=== PATIENT | female | born 1975 | race Caucasian/White ===

== ENCOUNTER 2018-03-12 14:40 | Inpatient (IN) ==
[2018-03-13] MEDS ORDERED: Morphine Inj 4 MG/ML Vial IV.PUSH PRN ×2 (00:03→14:00)
--- NOTE | 2018-03-13 06:36 | XR ---
EXAM DATE: 03/13/2018 5:53 AM EDT AGE/SEX: 42 years / Female INDICATIONS: Evaluate pneumothorax, chest tube came out yesterday. CLINICAL DATA: This is the patient's subsequent encounter. Patient reports that signs and symptoms h ave been present for 1 day and indicates a pain score of 3/10. MEDICAL/SURGICAL HISTORY: None. Chest tube, right. COMPARISON: [facility], CHEST 1V SINGLE AP, 03/12/2018. . FINDINGS: A single AP erect view the chest was obtained and demonstrates marked interval increase in the right pneumothorax with central collapse of the right lung. There is mild mediastinal shift to the left ind icating mild tension. There is hazy opacity in the right lung base. There is no effusion. The left romie ng is clear. The heart size is within normal limits. The bony thorax is intact. CONCLUSION: Significant interval increase in size of the right pneumothorax with evidence of tension. These findings were called to the patient's nurse Zelda at 0631 hours. Electronically signed by: See Ray MD 03/13/2018 6:35 AM EDT
[2018-03-13] MEDS ORDERED: Lidocaine 1% Inj 30 ML Vial ONE (07:30)
[2018-03-13] MEDS ORDERED: Morphine Sulfate Inj 8 MG/ML Vial ONE (07:53)
--- NOTE | 2018-03-13 08:51 | XR ---
EXAM DATE: 03/13/2018 8:40 AM EDT AGE/SEX: 42 years / Female INDICATIONS: Post chest tube placement in right side CLINICAL DATA: This is the patient's subsequent encounter. Patient reports that signs and symptoms h ave been present for 1 day and indicates a pain score of 8/10. MEDICAL/SURGICAL HISTORY: . pneumothorax Chest tube, right. COMPARISON: [facility], CHEST 1V SINGLE AP, 03/13/2018. . FINDINGS: Interval placement of right-sided chest tube with resolution of right-sided pneumothorax. Minimal ple ural parenchymal opacities at the right lung base. Tracer right-sided subcutaneous emphysema. Remaind er of exam is unchanged. CONCLUSION: 1. Interval placement right-sided chest tube with resolution of right-sided pneumothorax. Electronically signed by: Elkin Ross MD 03/13/2018 8:50 AM EDT
[2018-03-13] MEDS ORDERED: Morphine Inj 4 MG/ML Vial IV.PUSH ONE (09:00)
[2018-03-13] MEDS ORDERED: Bisacodyl 10 MG Supp RECTAL PRN (11:36)
--- NOTE | 2018-03-13 14:45 | P.PN ---
Subjective Interval history: Trauma PTD: 3 HD: 1 Pt lying in bed. Painful. just completed emergent RIGHT CT placement. Physical Exam Vital signs: Vital Signs 03/12/18 22:50 03/13/18 03:46 03/13/18 06:41 Temperature 98.1 F 97.5 F L 97.9 F Pulse Rate 53 L 82 74 Respiratory Rate 17 17 16 Blood Pressure 117/58 L 135/67 117/57 L Pulse Oximetry 97 94 L 96 03/13/18 07:30 03/13/18 08:00 03/13/18 12:00 Temperature 97.9 F 97.5 F L Pulse Rate 72 72 Respiratory Rate 20 19 19 Blood Pressure 111/65 111/65 106/75 Pulse Oximetry 99 99 98 Intake & Output 03/12/18 03/13/18 03/13/18 18:59 06:59 18:59 Intake Total 480 / 480 Balance 480 / 480 Weight 72.1 kg Intake: Oral 480 / 480 Other: # Voids 3 Weight On Admission 72.1 kg Narrative: GENERAL: This is a 42 year old female lying in bed. No distress noted. SKIN: Warm and dry. HEAD: Atraumatic. Normocephalic. EYES: PERRLA ENT: No nasal bleeding or discharge. Mucous membranes pink and moist. NECK: Trachea midline. No JVD. CARDIOVASCULAR: Regular rate and rhythm. RESPIRATORY: No accessory muscle use. Lungs are clear to auscultation. Breath sounds equal bilaterally. No distress or dyspnea. Right lateral chest tube in place to Pleur-evac drainage system to 20 cm suction. Elastoplast dressing applied. Elastoplast Dressing applied. CDI. GASTROINTESTINAL: BS + x 4 quads. Abdomen soft, non-tender, nondistended. MUSCULOSKELETAL: Extremities without cyanosis, or edema. + peripheral pulses x 4 extremities. Warm with good capillary refill and sensation. MAEW. NEUROLOGICAL: Awake and alert. Normal speech and pattern. Results - Labs CBC & Chem 7: 03/14/18 04:20 03/14/18 04:20 - Imaging Impressions Chest X-Ray 03/13/18 07:00 CONCLUSION: Significant interval increase in size of the right pneumothorax with evidence of tension. These findings were called to the patient's nurse Zelda at 0631 hours. Chest X-Ray 03/13/18 08:07 CONCLUSION: 1. Interval placement right-sided chest tube with resolution of right-sided pneumothorax. Assessment and Plan - Plan ELEM: This is a 42 year old female who developed a PTX after her young grandson jumped on her stomach. INJURIES: RIGHT PTX PMHx: smoker Procedures: 03/12: R CT in [place] 03/13: R CT "fell out" 03/13: R CT placed for PTX w tension Consults: Case management Diet: Regular diet. Tolerating po diet. Encourage good po intake with each meal. Pulmonary: Encourage good pulmonary toileting. IS at bedside and pt encouraged to use. Rationale for use explained to patient, and verbalized understanding. A.m. chest x-ray shows right PTX with tension. Right lateral chest tube emergently inserted at bedside and placed to Pleur- evac drainage system to 20 cm suction. Dressing CDI. Immediate follow-up chest x-ray shows resolution of right PTX. Follow-up chest x-ray in the morning PAIN Management: Percocet 5-10 mg q 4h. Morphine 2 mg q 3h for breakthrough pain . Flexeril 5 mg q8h. Toradol 15 mg q 6h. Activity: OOB. Pt ordered. GI prophylaxis: Protonix 40 mg IV Bowel regimen: Sushila-clace. MOM. Lactulose PRN. Senna PRN. Bisacodyl PRN. LBM: 0 DVT prophylaxis: Mechanical VTE with SCDs. Chemical management TBD. DC Planning: Case management consulted for assistance with final discharge disposition. Plan for discharge in 2-3 days once pain is managed, and chest tube can be removed. Emotional support provided to patient and family at bedside and plan of care discussed. Discussed with RN at bedside. Discussed pt condition and plan of care with collaborating trauma surgeon. Patient is hemodynamically stable and being managed on the med/surg floor. The trauma team will round each day, and evaluate plan of care on a daily basis. Right PTX O2 nasal cannula as needed Supportive care 03/12: R CT in [place] 03/13: R CT "fell out" 03/13: R CT placed for PTX with tension Aggressive pulmonary toileting A.m. chest x-ray shows right PTX tension Emergent right chest tube placed at bedside by . Right lateral chest tube placed up to Pleur-evac drainage system at 20 cm suction Immediate follow-up chest x-ray shows resolution of right PTX Chest x-ray daily while chest tube in place Pain management PT ordered Encourage out of bed Bowel regimen - Attending Attestation The exam, history, and the medical decision-making described in the above note were completed with the assistance of the mid-level provider. I reviewed and agree with the findings presented. I attest that I had a [id number] encounter with the patient on the same day, and personally performed and documented my assessment and findings in the medical record.
[2018-03-13] MEDS: Ketorolac Inj 30 MG/ML (IVP) Vial IV.PUSH SCH ×2 (15:29→21:56)
[2018-03-13] MEDS: Senna/Docusate Sodium 8.6/50 MG Tablet PO SCH (21:55)
[2018-03-14] MEDS: Ketorolac Inj 30 MG/ML (IVP) Vial IV.PUSH SCH ×4 (02:43→21:23)
[2018-03-14 05:16] LABS: Baso % (Auto) 0.8 % (0.0-2.0); Eos # (Auto) 0.2 th/mm3 (0.0-0.4); Eos % (Auto) 3.1 % (0.0-4.0); Hematocrit 31.4 % (35.0-46.0); Hemoglobin 10.2 gm/dL (11.6-15.3); Lymph # (Auto) 1.4 th/mm3 (1.0-4.8); Lymph % (Auto) 24.2 % (9.0-44.0); Mean Corpuscular HGB Conc 32.5 % (32.0-36.0); Mean Corpuscular Hemoglobin 27.7 pg (27.0-34.0); Mean Corpuscular Volume 85.2 fL (80.0-100.0); Mean Platelet Volume 9.5 fL (7.0-11.0); Mono # (Auto) 0.4 th/mm3 (0.0-0.9); Mono % (Auto) 6.7 % (0.0-8.0); Neut # (Auto) 3.8 th/mm3 (1.8-7.7); Neut % (Auto) 65.2 % (16.0-70.0); Platelet Count 237 th/mm3 (150-450); Red Blood Count 3.68 mil/mm3 (4.00-5.30); Red Cell Distribution Width 14.6 % (11.6-17.2); White Blood Count 5.8 th/mm3 (4.0-11.0)
[2018-03-14 05:35] LABS: Calcium 7.9 mg/dL (8.5-10.1); Carbon Dioxide 27.2 meq/L (21.0-32.0); Potassium 3.9 meq/L (3.5-5.1)
--- NOTE | 2018-03-14 07:47 | XR ---
EXAM DATE: 03/14/2018 7:39 AM EDT AGE/SEX: 42 years / Female INDICATIONS: Short of breath. CLINICAL DATA: This is the patient's subsequent encounter. Patient reports that signs and symptoms h ave been present for 2 days and indicates a pain score of Nonresponsive. MEDICAL/SURGICAL HISTORY: None. . Chest tube, right. COMPARISON: [facility] [place] 1[place], 03/13/2018. . FINDINGS: There is a stable right-sided chest tube in place. No significant pneumothorax. Slight progression of mild patchy airspace disease in the lower lobes bilaterally. Improved subcutaneous emphysema in the right chest wall. Cardiomediastinal contours are stable. Remainder of the exam is unchanged. CONCLUSION: 1. Stable right-sided chest tube in place without pneumothorax. 2. Slight progression of patchy bilateral lower lobe airspace disease, likely atelectasis. Electronically signed by: Elkin Ross MD 03/14/2018 7:45 AM EDT
[2018-03-14] MEDS: Senna/Docusate Sodium 8.6/50 MG Tablet PO SCH ×2 (10:22→21:23)
--- NOTE | 2018-03-14 12:49 | P.PN ---
Subjective Interval history: TRAUMA PTD: 3. HD: 2 Patient sitting up in bed. No distress noted. Patient states her pain, "comes and goes." Physical Exam Vital signs: Vital Signs 03/13/18 16:00 03/13/18 20:00 03/14/18 00:00 Temperature 97.5 F L 98.4 F 98 F Pulse Rate 60 70 70 Respiratory Rate 18 20 20 Blood Pressure 104/53 L 103/58 L 102/65 Pulse Oximetry 100 100 94 L 03/14/18 04:00 03/14/18 08:00 03/14/18 08:18 Temperature 97.2 F L 97.7 F Pulse Rate 74 75 Respiratory Rate 18 14 Blood Pressure 102/58 L 104/55 L Pulse Oximetry 100 99 100 03/14/18 12:00 Temperature 98.2 F Pulse Rate 76 Respiratory Rate 14 Blood Pressure 104/70 Pulse Oximetry 93 L Intake & Output 03/13/18 03/14/18 03/14/18 18:59 06:59 18:59 Intake Total 950 / 950 Output Total 50 / 50 Balance 950 / 950 -50 / -50 Intake: Oral 950 / 950 Output: Chest Tube Drainage 50 / 50 Right 50 / 50 Other: # Voids 3 Narrative: GENERAL: This is a 42 year old female lying in bed. No distress noted. SKIN: Warm and dry. HEAD: Atraumatic. Normocephalic. EYES: PERRLA ENT: No nasal bleeding or discharge. Mucous membranes pink and moist. NECK: Trachea midline. No JVD. CARDIOVASCULAR: Regular rate and rhythm. RESPIRATORY: No accessory muscle use. Lungs are clear to auscultation. Breath sounds equal bilaterally. No distress or dyspnea. Right lateral chest tube in place to Pleur-evac drainage system to 20 cm suction -decreased to waterseal upon rounds. Elastoplast Dressing applied. CDI. GASTROINTESTINAL: BS + x 4 quads. Abdomen soft, non-tender, nondistended. MUSCULOSKELETAL: Extremities without cyanosis, or edema. + peripheral pulses x 4 extremities. Warm with good capillary refill and sensation. MAEW. NEUROLOGICAL: Awake and alert. Normal speech and pattern. Results - Labs CBC & Chem 7: 03/14/18 04:20 03/14/18 04:20 Laboratory Results - last 24 hr 03/14/18 03/14/18 04:20 04:20 WBC 5.8 RBC 3.68 L Hgb 10.2 L Hct 31.4 L MCV 85.2 MCH 27.7 MCHC 32.5 RDW 14.6 Plt Count 237 MPV 9.5 Neut % (Auto) 65.2 Lymph % (Auto) 24.2 Iron % (Auto) 6.7 Eos % (Auto) 3.1 Baso % (Auto) 0.8 Neut # (Auto) 3.8 Lymph # (Auto) 1.4 Iron # (Auto) 0.4 Eos # (Auto) 0.2 Baso # (Auto) 0.0 WBC Differential . Differential Comment Auto diff final Sodium 141 Potassium 3.9 Chloride 110 H Carbon Dioxide 27.2 Anion Gap 4 L BUN 11 Creatinine 0.81 Estimated GFR 77 L Random Glucose 91 Calcium 7.9 L D - Imaging Impressions Chest X-Ray 03/14/18 06:00 CONCLUSION: 1. Stable right-sided chest tube in place without pneumothorax. 2. Slight progression of patchy bilateral lower lobe airspace disease, likely atelectasis. Assessment and Plan - Plan SUN'AQ: This is a 42 year old female who developed a pneumothorax after her young grandson jumped on her stomach. She originally went to [facility], and received a chest tube. She was transferred to [place] for trauma services. INJURIES: RIGHT PTX PMHx: smoker Procedures: 03/12: R CT in [place] 03/13: R CT "fell out" 03/13: R CT placed for PTX w tension Consults: Case management Diet: Regular diet. Tolerating po diet. Encourage good po intake with each meal. Pulmonary: Encourage good pulmonary toileting. IS at bedside and pt encouraged to use. Rationale for use explained to patient, and verbalized understanding. Right lateral chest tube in place to Pleur-evac drainage system at 20 cm suction. Dressing CDI. Chest tube output = 50 ml/25hr. Chest x-ray shows no PTX. Minimal atelectasis. Will decrease chest tube to waterseal. Follow-up chest x-ray in the morning. PAIN Management: Percocet 5-10 mg q 4h. Morphine 2 mg q 3h for breakthrough pain . Flexeril 5 mg q8h. Toradol 15 mg q 6h. Activity: OOB. Pt ordered. GI prophylaxis: Protonix 40 mg IV Bowel regimen: Sushila-clace. MOM. Lactulose PRN. Senna PRN. Bisacodyl PRN. LBM: 0 DVT prophylaxis: Mechanical VTE with SCDs. Chemical management TBD. DC Planning: Case management consulted for assistance with final discharge disposition. Plan for discharge in 1-2 days once pneumothorax resolved, and chest tube can be removed. Emotional support provided to patient at bedside and plan of care discussed. Discussed with RN at bedside. Discussed pt condition and plan of care with collaborating trauma surgeon. Patient is hemodynamically stable and being managed on the med/surg floor. The trauma team will round each day, and evaluate plan of care on a daily basis. RIGHT PTX O2 nasal cannula as needed Supportive care Aggressive pulmonary toileting Chest x-ray daily while chest tube is in place 03/12: R CT in [place] 03/13: R CT "fell out" 03/13: R CT placed for PTX with tension Right lateral chest tube in place to Pleur-evac drainage system to 20 cm suction. Chest tube output - 50 ml/24hrs Chest x-ray this a.m. shows no PTX, slight atelectasis Chest decreased to waterseal upon rounds Pain management PT ordered Encourage out of bed Bowel regimen Lovenox for DVT prophylaxis Addendum seen and examined-no PTX on CXR,no airleak,CT to waterseal,continue pain control
[2018-03-14] MEDS: Enoxaparin Inj 30 MG/0.3 ML Syringe SQ SCH (21:23)
[2018-03-15] MEDS: Ketorolac Inj 30 MG/ML (IVP) Vial IV.PUSH SCH ×3 (01:56→13:52)
--- NOTE | 2018-03-15 06:57 | XR ---
EXAM DATE: 03/15/2018 6:53 AM EDT AGE/SEX: 42 years / Female INDICATIONS: Short of breath, evaluate right side chest tube CLINICAL DATA: This is the patient's subsequent encounter. Patient reports that signs and symptoms h ave been present for 4 - 6 days and indicates a pain score of 3/10. MEDICAL/SURGICAL HISTORY: . pneumothorax Chest tube, right. COMPARISON: [facility], CHEST 1V SINGLE AP, 03/14/2018. . FINDINGS: A single AP portable erect expiratory view of the chest was obtained. The right-sided chest tube karla ins in place with no pneumothorax. There is mild streaky opacity in the perihilar regions and lung ba ses without significant change. There is mild blunting the right costophrenic angle. The bony thorax remains intact. CONCLUSION: 1. Stable appearance with right-sided chest tube and no pneumothorax. 2. Mild hazy opacity remains in the perihilar regions and lung bases and there is mild blunting the right costophrenic angle. Electronically signed by: See Ray MD 03/15/2018 6:56 AM EDT
[2018-03-15] MEDS: Enoxaparin Inj 30 MG/0.3 ML Syringe SQ SCH (09:42)
[2018-03-15] MEDS: Senna/Docusate Sodium 8.6/50 MG Tablet PO SCH (12:32)
[2018-03-15 12:39] VITALS: RESP 16
[2018-03-15 12:41] VITALS: TEMP 98.6
--- NOTE | 2018-03-15 15:03 | XR ---
EXAM DATE: 03/15/2018 3:00 PM EDT AGE/SEX: 42 years / Female INDICATIONS: Post chest tube removal. CLINICAL DATA: This is the patient's subsequent encounter. Patient reports that signs and symptoms h ave been present for 2 days and indicates a pain score of 0/10. MEDICAL/SURGICAL HISTORY: . Pneumothorax. . Chest tube, right. COMPARISON: [facility] [place], CHEST 1V SINGLE AP, 03/15/2018. . FINDINGS: A single AP view of the chest demonstrates the lungs to be symmetrically aerated without evidence of mass, infiltrate or effusion. The right-sided chest tube has been removed. There is no evidence of pn eumothorax. The cardiomediastinal contours are unremarkable. Osseous structures are intact. CONCLUSION: No evidence of pneumothorax. Electronically signed by: Arnie Hinson MD 03/15/2018 3:02 PM EDT
--- NOTE | 2018-03-15 16:11 | P.DS ---
Date of admission: 03/12/18 22:55 Primary care physician: No Primary Care Physician Anticipated date of discharge: 03/15/18 Brief History from admission: Spontaneous PTX DS: Diagnosis - Discharge Diagnosis (1) Patient denies medical problems Status: Acute DS: Medications - Discharge Medications Prescriptions: cyclobenzaprine 5 mg PO Q8HR 7 Days #11 tab oxycodone-acetaminophen 1 tab PO Q4H PRN 3 Days #18 tab PRN Reason: Pain DS: Summary Hospital Course: MAKAH: This is a 42 year old female who developed a pneumothorax after her young grandson jumped on her stomach. She originally went to [facility], and received a chest tube. She was transferred to [place] for trauma services. INJURIES: RIGHT PTX PMHx: smoker Procedures: 03/12: R CT in [place] 03/13: R CT "fell out" 03/13: R CT placed for PTX w tension Consults: Case management Right lateral chest tube in place to Pleur-evac drainage system to waterseal. A.m. chest x-ray shows no PTX. Chest tube removed without incident at bedside. Xeroform and 4 x 4 dressing applied and secured with Elastoplast tape. Patient tolerated procedure well. Follow-up chest x-ray post chest tube removal shows no PTX. The patient is now tolerating a po diet. Eating and drinking well. Pain is being managed well with PO pain medications, and patient is being a provided with a script for pain meds upon discharge. [This patient will be prescribed narcotic pain medications due to his traumatic injuries. The patient has a normal physiological response to severe traumatic injuries and surgery. He will need acute pain management with prescribed narcotic treatment. The [employer] prescription drug monitoring program database has been queried.] (NO driving while taking narcotic pain medication enforced to patient.) Pt is having regular bowel movements, and have recommended to patient to continue with stool softeners while taking narcotic pain medications to prevent constipation. Pt has been participating in PT and OT while admitted at [place] and has been ambulating with their assistance and independently. All follow up appointments have been provided and discussed with the patient. It is recommended that the patient keeps all his follow up appointments for continued recovery. Patient's condition and plan of care discussed with collaborating trauma surgeon. He is agreeable to plan for discharge today. Therefore, the patient is stable to be safely discharged home from a trauma surgery standpoint. Thank you for allowing us to participate in her care. We wish Peggy the best in her recovery. RIGHT PTX O2 nasal cannula as needed Supportive care Aggressive pulmonary toileting Chest x-ray daily while chest tube is in place 03/12: R CT in [place] 03/13: R CT "fell out" 03/13: R CT placed for PTX with tension Right lateral chest tube in place to Pleur-evac drainage system to waterseal Chest tube output - 110 ml/24hrs Chest x-ray this a.m. shows no PTX, slight atelectasis 03/15: Right lateral chest tube removed without incident Follow-up chest x-ray post chest tube removal shows no PTX Pain management PT ordered Encourage out of bed Bowel regimen Lovenox for DVT prophylaxis - Time Spent with Patient Total time spent providing and/or coordinating discharge services: Less than 30 minutes - Quality: VTE Deep Vein Thrombosis/Pulmonary Embolism Present on Admission: No Exam Vital signs: Vital Signs 03/14/18 16:00 03/14/18 20:00 03/14/18 20:16 Temperature 97.6 F 97.7 F Pulse Rate 80 79 Respiratory Rate 18 18 Blood Pressure 107/58 L 114/58 L Pulse Oximetry 100 98 100 03/14/18 22:29 03/15/18 00:00 03/15/18 04:00 Temperature 98.0 F 97.9 F Pulse Rate 82 79 Respiratory Rate 20 19 18 Blood Pressure 107/59 L 109/68 Pulse Oximetry 96 95 03/15/18 08:00 03/15/18 12:00 Temperature 98.2 F 98.6 F Pulse Rate 83 91 H Respiratory Rate 16 Blood Pressure 128/80 107/68 Pulse Oximetry 98 97 Intake & Output 03/14/18 03/15/18 03/15/18 18:59 06:59 18:59 Intake Total 1400 / 1400 900 / 900 Output Total 85 / 85 32 / 32 Balance 1315 / 1315 868 / 868 Weight 72.1 kg Intake: Oral 1400 / 1400 900 / 900 Output: Chest Tube Drainage Right Other: # Voids 5 4 Date of Last Bowel Movement 03/14/18 Narrative: GENERAL: This is a 42 year old female lying in bed. No distress noted. SKIN: Warm and dry. HEAD: Atraumatic. Normocephalic. EYES: PERRLA ENT: No nasal bleeding or discharge. Mucous membranes pink and moist. NECK: Trachea midline. No JVD. CARDIOVASCULAR: Regular rate and rhythm. RESPIRATORY: No accessory muscle use. Lungs are clear to auscultation. Breath sounds equal bilaterally. No distress or dyspnea. Old right CT dressing in place. CDI. GASTROINTESTINAL: BS + x 4 quads. Abdomen soft, non-tender, nondistended. MUSCULOSKELETAL: Extremities without cyanosis, or edema. + peripheral pulses x 4 extremities. Warm with good capillary refill and sensation. MAEW. NEUROLOGICAL: Awake and alert. Normal speech and pattern. Results Procedures completed during hospitalization: , - Impressions ITS Impressions Chest X-Ray 03/15/18 15:00 CONCLUSION: No evidence of pneumothorax. Discharge Plan - Discharge Disposition Patient Disposition: Discharge Home - Discharge Condition Condition: Stable - Discharge Order Discharge Orders: Discharge Order (Routine); Ordered 03/15/18 Ordered By: Miriam Perez - Discharge Details Anticipated Discharge Date: 03/15/18 - Physicians Team Primary Care Provider: Primary Care Ruby,No Attending Provider: Hiren Adams Other Providers: Rubio Camargo MD ; Pollo June MD ; [facility] ; Hiren Adams MD ; Miriam Perez ARNP ; Zeke Monique MD ; Carol Cano MD ; Jaime Booth MD ; Hilary Tatum ARNP - Rxs /Orders / Referrals /Forms Prescriptions: New cyclobenzaprine 10 mg Tablet 5 mg PO Q8HR 7 Days Qty: 11 RF: 0 magnesium hydroxide [Milk of Magnesia] 400 mg/5 mL Suspension 30 ml PO Q12HR RF: 0 oxycodone-acetaminophen 5-325 mg Tablet 1 tab PO Q4H PRN (Reason: Pain) 3 Days Qty: 18 RF: 0 sennosides-docusate sodium [Senna Plus] 8.6-50 mg Tablet 1 tab PO BID RF: 0 Referrals: Primary Care Libertad Beltran [Primary Care Provider] - See Instructions (Follow up in 1 week) Forms: School Release, Work Release/Restrictions - Discharge Instructions Patient Printed Instructions: Oxycodone/Acetaminophen (By mouth), Cyclobenzaprine (By mouth), Traumatic Pneumothorax (DC), Chest Tubes (DC) Additional Instructions: No driving while taking narcotic pain medications No driving until cleared by PCP physician May remove chest tube dressing after 2 days and shower No travel via airplane for 4-6 weeks No scuba diving for 4-6 weeks
[2018-03-15 16:39] VITALS: BP 117/79; PULSE 97; O2SAT 94
--- NOTE | 2018-04-21 22:03 | MH ---
cc: Hiren Adams MD DATE OF ADMISSION: 03/12/2018 HISTORY OF PRESENT ILLNESS: This is a patient who was seen in the emergency room for shortness of breath and right-sided chest pain. The patient states that her 2-year-old grandson jumped on her abdomen approximately 3 days prior to presentation. On evaluation by the emergency room physician, the patient was noted to have pneumothorax and chest tube was placed. The patient was transferred to [place] for further management. On my evaluation, the patient was lying in the bed, complained of pain. Immediately, prior to the transfer, the patient's chest tube fell out by report. A chest x-ray was ordered. Prior to transfer, her lungs appeared to be expanded. The patient had no complaints of shortness of breath at that time. Transfer proceeded. On arrival, the patient continued to be without difficulty breathing. PAST MEDICAL HISTORY: She has a history of COPD. PAST SURGICAL HISTORY: No surgery. SOCIAL HISTORY: She does smoke cigarettes. ALLERGIES: NO KNOWN DRUG ALLERGIES. PHYSICAL EXAMINATION: GENERAL: The patient was lying in bed, in no acute distress. HEENT: Pupils are equal and reactive. NECK: Trachea is midline. LUNGS: Respirations clear. CARDIOVASCULAR: Regular. GASTROINTESTINAL: Soft, nontender. MUSCULOSKELETAL: No deformity. NEUROLOGIC: Nonfocal. RADIOLOGIC IMAGES: The patient's x-rays revealed right-sided pneumothorax with some mediastinal shift prior to chest tube placement. ASSESSMENT AND PLAN: This is a patient with pneumothorax, resolved after catheter placement. We will obtain repeat chest x-ray. If the patient's symptoms deteriorate, we will place a chest tube. Monitor pulmonary status. Provide pain management. Hiren Adams MD JLS/sv , 09:41 PM , 09:47 PM
== END 2018-03-15 16:47 | disposition home or self-care (01) ==
LOC: NEDDLT 22:45 → N07 22:55
PROVIDERS: ADMIT Surgery; ATTEND Surgery

== ENCOUNTER 2018-09-19 18:33 | Inpatient (IN) ==
[2018-09-19] MEDS ORDERED: Bisacodyl 10 MG Supp RECTAL PRN (21:57)
[2018-09-19] MEDS ORDERED: Acetaminophen 325 MG Tablet PO PRN (21:57)
[2018-09-20] MEDS: Morphine Sulfate Inj 2 MG/ML Vial IV.PUSH PRN ×2 (04:36→07:46)
[2018-09-20] MEDS: Senna/Docusate Sodium 8.6/50 MG Tablet PO SCH ×4 (07:48→22:22)
--- NOTE | 2018-09-20 09:16 | XR ---
EXAM DATE: 09/20/2018 9:08 AM EST AGE/SEX: 43 years / Female INDICATIONS: Evaluate pneumothorax. CLINICAL DATA: This is the patient's subsequent encounter. Patient reports that signs and symptoms h ave been present for 2 days and indicates a pain score of 9/10. MEDICAL/SURGICAL HISTORY: None. None. COMPARISON: [facility], CHEST 1V SINGLE AP, 09/19/2018. . FINDINGS: Single AP view the chest. Lung volumes are low. Right-sided chest tube remains in place. No evidence of pneumothorax. Mild opacity in the right lung base indicating atelectasis. Cardiomediastinal silhou ette within normal limits. CONCLUSION: Right-sided chest tube remains in place. No evidence of pneumothorax. Electronically signed by: Krishna Freeman MD Board Certified Radiologist 09/20/2018 9:15 AM EST
[2018-09-20 12:37] LABS: Baso % (Auto) 0.5 % (0.0-2.0); Eos # (Auto) 0.1 th/mm3 (0.0-0.4); Eos % (Auto) 1.1 % (0.0-4.0); Hematocrit 36.7 % (35.0-46.0); Hemoglobin 11.9 gm/dL (11.6-15.3); Lymph # (Auto) 0.8 th/mm3 (1.0-4.8); Lymph % (Auto) 9.6 % (9.0-44.0); Mean Corpuscular HGB Conc 32.3 % (32.0-36.0); Mean Corpuscular Hemoglobin 28.2 pg (27.0-34.0); Mean Corpuscular Volume 87.1 fL (80.0-100.0); Mono # (Auto) 0.4 th/mm3 (0.0-0.9); Neut # (Auto) 7.2 th/mm3 (1.8-7.7); Neut % (Auto) 83.8 % (16.0-70.0); Platelet Count 274 th/mm3 (150-450); Red Blood Count 4.21 mil/mm3 (4.00-5.30); Red Cell Distribution Width 15.9 % (11.6-17.2); White Blood Count 8.6 th/mm3 (4.0-11.0)
--- NOTE | 2018-09-20 12:47 | CT ---
EXAM DATE: 09/20/2018 12:43 PM EST AGE/SEX: 43 years / Female INDICATIONS: Chest pain. Spontaneous pneumothorax. CLINICAL DATA: This is the patient's initial encounter. Patient reports that signs and symptoms have been present for 2 days and indicates a pain score of 4/10. MEDICAL/SURGICAL HISTORY: Chronic obstructive pulmonary disease. None. RADIATION DOSE: 9.4 CTDI (mGy) COMPARISON: No prior exams available for comparison. TECHNIQUE: Multiple contiguous axial images were obtained through the chest without contrast. Image s were obtained in suspended respiration using multiple row detector helical technique. Using automa triston exposure control and adjustment of the mA and/or kV according to patient size, radiation dose was kept as low as reasonably achievable to obtain optimal diagnostic quality images. DICOM format imag e data is available electronically for review and comparison. FINDINGS: Lungs: Mild paraseptal emphysema bilaterally. Pigtail chest catheter is seen at the lateral right romie ng base. No evidence of pneumothorax. Moderate severity atelectasis at the lung bases bilaterally. Mediastinum: There is good visualization of the great vessels of the middle mediastinum. No evidenc e of mediastinal or hilar adenopathy/mass. Pleurae: No evidence of focal thickening or pleural effusion. Axillae: Unremarkable. Bony Structures: Unremarkable. Miscellaneous: Upper abdomen unremarkable. CONCLUSION: 1. Mild paraseptal emphysema bilaterally. 2. Right-sided chest tube in place. 3. No evidence of pneumothorax. Electronically signed by: Krishna Freeman MD Board Certified Radiologist 09/20/2018 12:46 PM EST
--- NOTE | 2018-09-20 13:05 | P.HPIM ---
History of Present Illness Service: Hospitalist Primary Care Physician: No Primary Care Physician Chief Complaint: Shortness of breath. History of Present Illness: Ms. Rand is a 43 year old female with a history of prior pneuothorax (PTX) who presented to [facility] ER with shortness of breath that started 3 days prior to this admission. CXR showed a large PTX and subsequently chest tube was placed and patient was transferred to [facility]. At the time of this interview, patient denies any chest pain, shortness of breath, fever or chills. She denies any abdominal pain, cough. No changes in bowel or bladder habits. Patient is currently doing well. On room air. Chest tube is on suction [id number]. I have discussed with Dr. Booth who has agreed to see patient and manage chest tube. Repeat CXR shows no PTX. Past medical history: Pneumothorax in April 2018. Past surgical history: No significant surgical history. Social history: Patient smokes half a pack a day. Drinks socially. No illicit drug use. Family history: Parents have no history of heart disease or cancer. However grand mother had cancer. Inpatient Certification Inpatient Certification: I certify that the inpatient services were ordered in accordance with Medicare regulations governing the order. This includes certification that hospital inpatient services are reasonable and necessary and in the case of services not specified as inpatient-only under 42 CFR 419.22(n), that they are appropriately provided as inpatient services in accordance to with the 2-midnight benchmark under 43 CFR 412.3(e) Estimated Total Length of Stay (Days): 3 Plans for Post Hospital Care: Home Review of Systems Review of Systems: all other systems reviewed are negative [facility] Medical History Medical History COPD (chronic obstructive pulmonary disease) (Acute) Pneumothorax on right (Acute) Surgical History Surgical History No history of previous surgery (Acute) Social History Social History Substance History: No History of Abuse Second Hand Smoke Exposure: No Smoking Status: Current every day smoker Tobacco Type: Cigarettes How Often Do You Have a Drink Containing Alcohol: 2 to 3 times a week Immunization History Tetanus Immunization: Unsure Hx Influenza Vaccine This Season: Yes Medications and Allergies Allergies Allergy/AdvReac Type Severity Reaction Status Date / Time No Known Allergies Allergy Verified 09/20/18 02:05 Home Medications Medication Instructions Recorded Confirmed Type No Known Home Medications 09/19/18 09/20/18 History Active Medications: Active Medications Acetaminophen (Tylenol) 650 mg PO Q4H PRN PRN Reason: Acute Pain 1-5 Hydrocodone Bitart/Acetaminophen ([place] 7.5/325) 1 tab PO Q6H PRN PRN Reason: Acute Pain Last Admin: 09/20/18 09:00 Dose: 1 tab Al Hydroxide/Mg Hydroxide (Milk Of Janell Lijose angel) 30 ml PO Q12H PRN PRN Reason: Mild Constipation Bisacodyl (Dulcolax Supp) 10 mg RECTAL DAILY PRN PRN Reason: SEVERE CONSITIPATION Morphine Sulfate (Morphine Inj) 2 mg IV.PUSH Q3H PRN PRN Reason: pain > 3 Last Admin: 09/20/18 07:46 Dose: 2 mg Ondansetron HCl (Zofran Inj) 4 mg IV.PUSH Q6H PRN PRN Reason: NAUSEA OR VOMITING Last Admin: 09/20/18 04:35 Dose: 4 mg Senna/Docusate Sodium (Sushila-Colace) 1 tab PO BID ON LICENSE OF [facility] Last Admin: 09/20/18 10:16 Dose: 1 tab Sennosides (Senokot) 17.2 mg PO Q12H PRN PRN Reason: Moderate Constipation Sodium Chloride (Ns Flush) 2 ml IV.FLUSH BID ON LICENSE OF [facility] Last Admin: 09/20/18 09:20 Dose: 2 ml Sodium Chloride (Ns Flush) 2 ml IV.FLUSH PRN PRN PRN Reason: FLUSH AFTER USING IV ACCESS Zolpidem Tartrate (Ambien) 5 mg PO HS PRN PRN Reason: INSOMNIA Physical Exam Vital signs: Vital Signs 09/20/18 01:30 09/20/18 04:00 09/20/18 06:21 Temperature 97.6 F 97.4 F L Pulse Rate 74 78 66 Respiratory Rate 18 18 Blood Pressure 121/72 117/78 Pulse Oximetry 97 100 09/20/18 08:00 09/20/18 11:54 Temperature 97.5 F L 97.8 F Pulse Rate 67 72 Respiratory Rate 16 16 Blood Pressure 118/77 112/75 Pulse Oximetry 100 100 Intake & Output 09/19/18 09/20/18 09/20/18 18:59 06:59 18:59 Intake Total Balance Weight 75.6 kg Intake: Oral Other: # Voids 1 Date of Last Bowel Movement 09/19/18 # Bowel Movements 0 Weight On Admission 75.6 kg Narrative: GENERAL: This is a well-nourished, well-developed patient, in no apparent distress. SKIN: No rashes, ecchymoses or lesions. Warm and dry. HEAD: Atraumatic. Normocephalic. No temporal or scalp tenderness. EYES: Pupils equal round and reactive. No injection or drainage. ENT: Nose without bleeding, purulent drainage or septal hematoma. Airway patent. NECK: Trachea midline. No lymphadenopathy. Supple, nontender, no meningeal signs. CARDIOVASCULAR: Regular rate and rhythm without murmurs, gallops, or rubs. No JVD. RESPIRATORY: Clear to auscultation. Breath sounds equal bilaterally. No wheezes , rales, or rhonchi. Right-sided chest tube in place. GASTROINTESTINAL: Abdomen soft, non-tender, nondistended. No guarding. MUSCULOSKELETAL: Extremities without clubbing, cyanosis, or edema. NEUROLOGICAL: Awake and alert. Cranial nerves II through XII intact. No focal neurological deficits. Normal speech. Results Labs CBC & Chem 7: 09/20/18 11:28 09/20/18 11:28 Imaging Impressions Chest X-Ray 09/20/18 00:00 CONCLUSION: Right-sided chest tube remains in place. No evidence of pneumothorax. Chest CT 09/20/18 09:33 CONCLUSION: 1. Mild paraseptal emphysema bilaterally. 2. Right-sided chest tube in place. 3. No evidence of pneumothorax. Caprini VTE Risk Assessment Caprini VTE Risk Assessment: No/Low Risk (score <= 1) Caprini Risk Assessment Model: Point Value = 1 Point Value = 2 Point Value = 3 Point Value = 5 Age 41-60 Minor surgery BMI > 25 kg/m2 Swollen legs Varicose veins or History of unexplained or recurrent spontaneous Oral contraceptives or hormone replacement Sepsis (< 1 month) Serious lung disease, including pneumonia (< 1 month) Abnormal pulmonary function Acute myocardial infarction Congestive heart failure (< 1 month) History of inflammatory bowel disease Medical patient at bed rest Age 61-74 Arthroscopic surgery Major open surgery (> 45 min) Laparoscopic surgery (> 45 min) Malignancy Confined to bed (> 72 hours) Immobilizing plaster cast Central venous access Age >= 75 History of VTE Family history of VTE Factor V Leiden Prothrombin [id number] Lupus anticoagulant Anticardiolipin antibodies Elevated serum homocysteine Heparin-induced thrombocytopenia Other congenital or acquired thrombophilia Stroke (< 1 month) Elective arthroplasty Hip, pelvis, or leg fracture Acute spinal cord injury (< 1 month) Prophylaxis Regimen: Total Risk Factor Score Risk Level Prophylaxis Regimen 0-1 Low Early ambulation 2 Moderate Order ONE of the following: *Sequential Compression Device (SCD) *Heparin 5000 units SQ BID 3-4 Higher Order ONE of the following medications: *Heparin 5000 units SQ TID *Enoxaparin/Lovenox 40 mg SQ daily (WT < 150 kg, CrCl > 30 mL/min) *Enoxaparin/Lovenox 30 mg SQ daily (WT < 150 kg, CrCl > 10-29 mL/min) *Enoxaparin/Lovenox 30 mg SQ BID (WT < 150 kg, CrCl > 30 mL/min) AND/OR *Sequential Compression Device (SCD) 5 or more Highest Order ONE of the following medications: *Heparin 5000 units SQ TID (Preferred with Epidurals) *Enoxaparin/Lovenox 40 mg SQ daily (WT < 150 kg, CrCl > 30 mL/min) *Enoxaparin/Lovenox 30 mg SQ daily (WT < 150 kg, CrCl > 10-29 mL/min) *Enoxaparin/Lovenox 30 mg SQ BID (WT < 150 kg, CrCl > 30 mL/min) AND *Sequential Compression Device (SCD) Assessment and Plan Plan Ms. Rand is a pleasant 43-year-old female with a previous history of pneumothorax who presented to [facility] due to 3-day duration of shortness of breath. She was found to have significant pneumothorax and a chest tube was placed in the ED. Patient was subsequently transferred to the main hospital for further evaluation and treatment. Acute pneumothorax right-sided Continue chest tube at 20 mm H2O. Repeat chest x-rays yesterday and this morning show resolution of pneumothorax. We can probably put chest tube to waterseal and clamped later on. We can likely discontinue chest tube within the next 24 hours[address] I discussed with Dr. Booth (Surgery) who will evaluate patient and manage chest tube. Tobacco abuse We will start patient on nicotine patch 7 mg. Full code. SCDs.
[2018-09-20 13:10] LABS: Calcium 8.5 mg/dL (8.5-10.1); Carbon Dioxide 24.5 meq/L (21.0-32.0); Potassium 3.8 meq/L (3.5-5.1)
[2018-09-20] MEDS: Acetaminophen 325 MG Tablet PO PRN (17:54)
[2018-09-21] MEDS: Senna/Docusate Sodium 8.6/50 MG Tablet PO SCH ×2 (08:43→21:14)
--- NOTE | 2018-09-21 11:26 | P.DIET ---
Nutritional Evaluation Type of nutrition evaluation: initial Nutrition consult regarding: Diet Evaluation Nutrition screening: Weight Loss > 10 lbs Screening comments: 09/21/18 WLS Subjective Subjective Comments: Pt mentioned she had a good appetite and had no major issues nutritionally during RD visit. Objective - Diagnosis Spontaneous pneumothorax - Objective Dietitian Reviewed in Medical Record: Current diet, Curent medications, Intake & Output, Labs, Medical history Diet Order: regular Oral Diet Intake Amount: Excellent 90%+ Objective Comments: PMH: COPD, pneumothorax on right Labs: random glucose 139 LBM 09/19/18 Assessment Assessment: Pt currently at nutritional risk r/t reported unplanned wt loss. Pt stated she had a good appetite today and ate around 100% of breakfast this am, 100% of dinner yesterday 09/20/18. When asked about her wt loss, pt mentioned her wt loss probably came from stress from work. RD will continue to monitor pts nutritional status for additional PO supplements. Continue to monitor PO intake. Labs reviewed, dietitian following. Recommendations: 1. RD will continue to monitor pts nutritional status for additional PO supplements 2. Continue to monitor PO intake 3. Dietitian following Dietitian to Monitor: Lab values, Glucose level, Intake & Output, Weight change , PO Intake, Medical course
--- NOTE | 2018-09-21 12:49 | P.CON ---
History of Present Illness Reason for Consult: Chest tube management Primary Care Provider: No Primary Care Physician Chief Complaint: Shortness of breath. History of Present Illness: 43-year-old woman with a history of pneumothorax in the past presents with a large pneumothorax in outside hospital. Chst tube was placed and she was transferred here for chest tube management. [facility] - History History Provided By: Patient - Medical History Medical History: Medical History (Last Updated 09/19/18 @ 18:46 by Joana Mason RN) COPD (chronic obstructive pulmonary disease) Pneumothorax on right - Surgical History Surgical History: Surgical History (Last Reviewed 09/19/18 @ 18:46 by Joana Mason RN) No history of previous surgery - Tobacco History Second Hand Smoke Exposure: No Tobacco Use In Past 30 Days: Yes Smoking Status: Current every day smoker Tobacco Type: Cigarettes - Alcohol History How Often Do You Have a Drink Containing Alcohol: 2 to 3 times a week - Substance Use History Substance History: No History of Abuse - Immunization History Tetanus Immunization: Unsure Hx Influenza Vaccine This Season: Yes Medications and Allergies Active Medications: Active Medications Acetaminophen (Tylenol) 650 mg PO Q4H PRN PRN Reason: Acute Pain 1-5 Last Admin: 09/20/18 17:54 Dose: 650 mg Hydrocodone Bitart/Acetaminophen ([place] 7.5/325) 1 tab PO Q6H PRN PRN Reason: Acute Pain Last Admin: 09/21/18 07:19 Dose: 1 tab Al Hydroxide/Mg Hydroxide (Milk Of Magnyamilka Liq) 30 ml PO Q12H PRN PRN Reason: Mild Constipation Albuterol (Duoneb Neb (Prn)) 1 ampul NEB Q2HR NEB PRN PRN Reason: SHORTNESS OF BREATH/WHEEZING Last Admin: 09/21/18 00:04 Dose: 1 ampul Bisacodyl (Dulcolax Supp) 10 mg RECTAL DAILY PRN PRN Reason: SEVERE CONSITIPATION Morphine Sulfate (Morphine Inj) 2 mg IV.PUSH Q3H PRN PRN Reason: pain > 3 Last Admin: 09/20/18 07:46 Dose: 2 mg Nicotine (Habitrol 7 Mg Patch.24 Hr) 1 patch T-DERMAL DAILY LES Last Admin: 09/21/18 08:43 Dose: 1 patch Ondansetron HCl (Zofran Inj) 4 mg IV.PUSH Q6H PRN PRN Reason: NAUSEA OR VOMITING Last Admin: 09/20/18 04:35 Dose: 4 mg Senna/Docusate Sodium (Sushila-Colace) 1 tab PO BID [facility] Last Admin: 09/21/18 08:43 Dose: 1 tab Sennosides (Senokot) 17.2 mg PO Q12H PRN PRN Reason: Moderate Constipation Sodium Chloride (Ns Flush) 2 ml IV.FLUSH BID [facility] Last Admin: 09/21/18 08:46 Dose: 2 ml Sodium Chloride (Ns Flush) 2 ml IV.FLUSH PRN PRN PRN Reason: FLUSH AFTER USING IV ACCESS Zolpidem Tartrate (Ambien) 5 mg PO HS PRN PRN Reason: INSOMNIA Allergies Allergy/AdvReac Type Severity Reaction Status Date / Time No Known Allergies Allergy Verified 09/20/18 02:05 Home Medications Medication Instructions Recorded Confirmed Type No Known Home Medications 09/19/18 09/20/18 History Physical Exam Vital signs: Vital Signs 09/20/18 16:00 09/20/18 19:55 09/20/18 22:16 Temperature 97.8 F 98.4 F Pulse Rate 67 76 77 Respiratory Rate 16 20 Blood Pressure 105/57 L 96/55 L Pulse Oximetry 100 98 09/20/18 22:55 09/20/18 23:40 09/21/18 00:00 Temperature 97.9 F Pulse Rate 69 66 Respiratory Rate 18 20 Blood Pressure 96/56 L Pulse Oximetry 98 09/21/18 00:09 09/21/18 03:35 09/21/18 04:00 Temperature 97.7 F Pulse Rate 86 76 71 Respiratory Rate 15 20 Blood Pressure 98/63 L Pulse Oximetry 98 09/21/18 08:00 Temperature 98.3 F Pulse Rate 69 Respiratory Rate 18 Blood Pressure 97/59 L Pulse Oximetry 98 Intake & Output 09/20/18 09/21/18 09/21/18 18:59 06:59 18:59 Intake Total 1600 / 1600 240 / 240 Output Total Balance 1600 / 1600 240 / 240 - -10 Weight 78.1 kg Intake: Oral 1600 / 1600 240 / 240 Output: Chest Tube Drainage Right Lower Other: # Voids 5 3 Date of Last Bowel Movement 09/19/18 09/19/18 # Bowel Movements 0 0 Results - Labs CBC & Chem 7: 09/20/18 11:28 09/20/18 11:28 Labs: Laboratory Results - last 24 hr 09/20/18 11:28 Sodium 141 Potassium 3.8 Chloride 108 H Carbon Dioxide 24.5 Anion Gap 9 BUN 6 L Creatinine 0.87 Estimated GFR 71 L Random Glucose 139 H Calcium 8.5 - Imaging Impressions Chest CT 09/20/18 09:33 CONCLUSION: 1. Mild paraseptal emphysema bilaterally. 2. Right-sided chest tube in place. 3. No evidence of pneumothorax. Assessment and Plan - Plan CXR reviewed, pneumothorax resolved chest tube to 20cm wall suction for 48 hours Water seal after 48 hours if no evidence of air leak Will continue to follow
--- NOTE | 2018-09-21 16:05 | P.PNIM ---
Subjective Interval history: Follow-up for right-sided pneumothorax. Patient is currently doing well. Denies any chest pain, shortness of breath, fever or chills. Chest tube remains in place. She also complains of left lower quadrant abdominal/pelvic pain. No dysuria, hematuria. Physical Exam Vital signs: Vital Signs 09/20/18 19:55 09/20/18 22:16 09/20/18 22:55 Temperature 98.4 F Pulse Rate 76 77 Respiratory Rate 20 18 Blood Pressure 96/55 L Pulse Oximetry 98 09/20/18 23:40 09/21/18 00:00 09/21/18 00:09 Temperature 97.9 F Pulse Rate 69 66 86 Respiratory Rate 20 15 Blood Pressure 96/56 L Pulse Oximetry 98 09/21/18 03:35 09/21/18 04:00 09/21/18 08:00 Temperature 97.7 F 98.3 F Pulse Rate 76 71 69 Respiratory Rate 20 18 Blood Pressure 98/63 L 97/59 L Pulse Oximetry 98 98 09/21/18 12:00 Temperature 98.8 F Pulse Rate 74 Respiratory Rate 18 Blood Pressure 101/52 L Pulse Oximetry 98 Intake & Output 09/20/18 09/21/18 09/21/18 18:59 06:59 18:59 Intake Total 1600 / 1600 240 / 240 Output Total Balance 1600 / 1600 240 / 240 -10 Weight 78.1 kg Intake: Oral 1600 / 1600 240 / 240 Output: Chest Tube Drainage Right Lower Other: # Voids 5 3 Date of Last Bowel Movement 09/19/18 09/19/18 # Bowel Movements 0 0 Narrative: GENERAL: Well-nourished, well-developed patient. SKIN: Warm and dry. HEAD: Normocephalic. EYES: No scleral icterus. No injection or drainage. NECK: Supple, trachea midline. No JVD or lymphadenopathy. CARDIOVASCULAR: Regular rate and rhythm without murmurs, gallops, or rubs. Chest tube in place. RESPIRATORY: Breath sounds equal bilaterally. No accessory muscle use. GASTROINTESTINAL: Abdomen soft, non-tender, nondistended. Mild tenderness to palpation over the left lower quadrant. MUSCULOSKELETAL: No cyanosis, or edema. BACK: Nontender without obvious deformity. No CVA tenderness. Results Labs CBC & Chem 7: 09/20/18 11:28 09/20/18 11:28 Assessment and Plan Plan Ms. Rand is a pleasant 43-year-old female with a previous history of pneumothorax who presented to [facility] due to 3-day duration of shortness of breath. She was found to have significant pneumothorax and a chest tube was placed in the ED. Patient was subsequently transferred to the main hospital for further evaluation and treatment. Acute pneumothorax right-sided Continue chest tube at 20 mm H2O. Repeat chest x-ray does show resolution of pneumothorax. Appreciate surgery input. Left lower quadrant abdominal pain We will obtain a pelvic ultrasound. Pain is chronic, if ultrasound is negative, patient can likely follow-up in the outpatient setting with primary care physician. Tobacco abuse Nicotine patch 7 mg. Patient is advised to quit tobacco altogether. CT chest shows some bilateral emphysematous changes. Full code. SCDs. Discharge: Probable discharge home within 24-48 hours.
--- NOTE | 2018-09-21 17:15 | US ---
EXAM DATE: 09/21/2018 5:06 PM EST AGE/SEX: 43 years / Female INDICATIONS: Pelvic pain. CLINICAL DATA: This is the patient's initial encounter. Patient reports that signs and symptoms have been present for 1 month and indicates a pain score of 5/10. MEDICAL/SURGICAL HISTORY: Chronic obstructive pulmonary disease. Right sided pneumothorax. Non e. COMPARISON: No prior exams available for comparison. MEASUREMENTS: Uterus:__10.1 x 4.6 x 7.4 cm Endometrial Stripe:__7 mm Right Ovary:__ 3.1 x 2.0 x 2.8 cm Left Ovary:__ 2.6 x 1.6 x 2.2 cm FINDINGS: Uterus: The myometrium has homogeneous echotexture without mass. IUD is in place centrally in the ut erus. Endometrial Stripe: The endometrial stripe displays homogeneous echotexture. Right Ovary: Ovary contains no mass or significant cystic lesion. Left Ovary: Ovary contains no mass or significant cystic lesion. Fluid: No free fluid. Other: None. CONCLUSION: 1. IUD in the uterus. 2. Ovaries within normal limits. Electronically signed by: Krishna Freeman MD Board Certified Radiologist 09/21/2018 5:14 PM EST
[2018-09-22] MEDS: Senna/Docusate Sodium 8.6/50 MG Tablet PO SCH ×2 (08:58→20:44)
[2018-09-22] MEDS: oxyCODONE/Acetaminophen 10/325 Tablet PO PRN ×3 (10:20→20:46)
--- NOTE | 2018-09-22 11:50 | P.PNIM ---
Subjective Interval history: Patient complains of pleuritic pain secondary to chest tube and right chest wall. She has the chest tube set to waterseal, no vacuum is in place. Surgery recommended 48 hours on waterseal, that should be sometime tonight. Physical Exam Vital signs: Vital Signs 09/21/18 12:00 09/21/18 16:00 09/21/18 19:52 Temperature 98.8 F 98.2 F 97.7 F Pulse Rate 74 77 71 Respiratory Rate 18 18 16 Blood Pressure 101/52 L 101/62 112/57 L Pulse Oximetry 98 97 97 09/21/18 23:36 09/22/18 04:08 09/22/18 04:45 Temperature 98.1 F 98.0 F Pulse Rate 77 78 Respiratory Rate 16 17 18 Blood Pressure 97/57 L 106/64 Pulse Oximetry 93 L 95 09/22/18 08:00 Temperature 98.1 F Pulse Rate 89 Respiratory Rate 20 Blood Pressure 109/57 L Pulse Oximetry 93 L Intake & Output 09/21/18 09/22/18 09/22/18 18:59 06:59 18:59 Intake Total 720 / 720 Output Total 1010 / 1010 0 / 0 Balance -1010 / -1010 720 / 720 Weight 78.7 kg Intake: Oral 720 / 720 Output: Urine 1000 / 1000 Chest Tube Drainage 10 / 10 0 / 0 Right Lower 10 / 10 0 / 0 Other: # Voids 7 Date of Last Bowel Movement 09/19/18 09/19/18 # Bowel Movements 0 Narrative: GENERAL: Well-nourished, well-developed patient. SKIN: Warm and dry. HEAD: Normocephalic. EYES: No scleral icterus. No injection or drainage. NECK: Supple, trachea midline. No JVD or lymphadenopathy. CARDIOVASCULAR: Regular rate and rhythm without murmurs, gallops, or rubs. Chest tube in place. RESPIRATORY: Breath sounds equal bilaterally. No accessory muscle use. GASTROINTESTINAL: Abdomen soft, non-tender, nondistended. Mild tenderness to palpation over the left lower quadrant. MUSCULOSKELETAL: No cyanosis, or edema. BACK: Nontender without obvious deformity. No CVA tenderness. Results Labs CBC & Chem 7: 09/20/18 11:28 09/20/18 11:28 Imaging Imaging: Impressions Pelvis Ultrasound 09/21/18 00:00 CONCLUSION: 1. IUD in the uterus. 2. Ovaries within normal limits. Assessment and Plan Plan Ms. Rand is a pleasant 43-year-old female with a previous history of pneumothorax who presented to [facility] due to 3-day duration of shortness of breath. She was found to have significant pneumothorax and a chest tube was placed in the ED. Patient was subsequently transferred to the main hospital for further evaluation and treatment. Acute pneumothorax right-sided Continue chest tube at 20 mm H2O, 48 hours recommended and should be up later today Previous chest x-ray shows resolution of pneumothorax, will repeat chest x-ray Appreciate surgical management of chest tube h/o recurrent pneumothorax CT chest shows mild emphysema, which is a risk factor This is her second episode within the last 6 months Pulmonology consult for further management and discussion of treatment options and prevention Left lower quadrant abdominal pain Ultrasound was negative, IUD in place, ovaries within normal limits Tobacco abuse Continue nicotine patch 7 mg. Patient is advised to quit smoking DVT prophylaxis SCDs Discharge planning Chest tube should be pulled either later today or sometime tomorrow, she may go home when cleared by surgery
--- NOTE | 2018-09-22 13:27 | XR ---
EXAM DATE: 09/22/2018 1:22 PM EST AGE/SEX: 43 years / Female INDICATIONS: Pneumothorax. CLINICAL DATA: This is the patient's subsequent encounter. Patient reports that signs and symptoms h ave been present for 3 days and indicates a pain score of 0/10. MEDICAL/SURGICAL HISTORY: None. None. [place] [facility] [place]. . FINDINGS: A single AP view of the chest demonstrates the lungs to be symmetrically aerated without evidence of mass, infiltrate or effusion. A small caliber chest tube is seen within the right lateral costophreni c angle. No pneumothorax. Linear scarring within the left midlung. The cardiomediastinal contours are unremarkable. Osseous structures are intact. CONCLUSION: Right chest tube without pneumothorax. Electronically signed by: Roldan Aldana MD Board Certified Radiologist 09/22/2018 1:26 PM EST
--- NOTE | 2018-09-22 13:51 | MB ---
cc: Myranda Ray MD DATE: 09/22/2018 HISTORY OF PRESENT ILLNESS: Ms. Rand is a 43-year-old white female who presented with a right pneumothorax to [place] emergency room. A chest tube was inserted, lung reexpanded. This is the second incident within about 6 months. She presented to the hospital 6 months ago with a pneumothorax. She smokes 1/2 to 1 pack per day, has smoked since her early 20s and CT scan done on 09/20/2018 does reveal paraseptal emphysema in both lungs and good reexpansion of the right lung. The patient understands that smoking/emphysema is the cause of this and seems committed to quitting. She has no other symptoms at the present time other than some mild discomfort in the right chest. She is not normally short of breath. She has no chronic cough or purulent sputum production. No history of hemoptysis. PAST MEDICAL HISTORY: Otherwise unremarkable. No significant prior medical illnesses or surgeries. FAMILY HISTORY: Positive for cancer. SOCIAL HISTORY: Current smoker. No history of alcohol or drug abuse. MEDICATIONS AT HOME: None. MEDICATIONS HERE: Reviewed in the EMR. ALLERGIES: NONE KNOWN. REVIEW OF SYSTEMS: Other than that noted above, unremarkable. PHYSICAL EXAMINATION: GENERAL: Well-developed, well-nourished white female at rest, no distress. Chest tube in the right, no air leak, no fluctuation. VITAL SIGNS: Temperature 98 degrees, blood pressure 110/60, respirations 18, O2 saturation 96%. NECK: Veins are flat. No subcutaneous air. CHEST: Clear. No wheezes, rales, or rhonchi. HEART: Regular rhythm. No harsh murmur. EXTREMITIES: No edema or cyanosis. DISCUSSION: Ms. Rand presents with a second spontaneous pneumothorax on the right related to her underlying emphysema. She recognizes the importance of stopping smoking and seems prepared to quit. Dr. Ngo was asked to see her in consultation for further management and at this point, I have suggested that she consider a thoracoscopic pleurodesis, which should be the most effective for long-term management of this problem. At this point, having had a second pneumothorax in a short interval of time with underlying emphysema, the likelihood of recurrence is very high. She understands that there are alternatives including talc instillation through the tube, but she is young and otherwise healthy, I think would tolerate the surgery well and have a better long-term resolved. She will discuss this with the thoracic surgeon. There is no further medical intervention warranted at the present time and the lung has expanded with no residual air leak. If I can be of further assistance I will be happy to see her back, otherwise I will sign off at this point. R. MD WEI Dumont/lucian , 01:32 PM , 01:39 PM
[2018-09-23] MEDS: oxyCODONE/Acetaminophen 10/325 Tablet PO PRN ×5 (02:02→20:21)
[2018-09-23] MEDS: Senna/Docusate Sodium 8.6/50 MG Tablet PO SCH ×2 (09:41→20:21)
--- NOTE | 2018-09-23 12:51 | P.PNVS ---
Subjective Subjective/Hospital Course: 43-year-old female with recurrent right-sided pneumothorax, first episode being in April followed by the current one. Full consult has been dictated At this point I believe patient will be best served with thoracoscopy and bleb resection and pleurodesis Will take patient to the operating room tomorrow Objective Vital Signs / I&O: Vital Signs 09/22/18 18:19 09/22/18 20:03 09/22/18 23:21 Temperature 98.4 F 98.4 F 98.7 F Pulse Rate 91 H 91 H 95 H Respiratory Rate 20 16 17 Blood Pressure 96/51 L 97/64 L 103/62 Pulse Oximetry 97 98 94 L 09/23/18 08:00 Temperature 98.2 F Pulse Rate 94 H Respiratory Rate 16 Blood Pressure 108/53 L Pulse Oximetry 94 L Intake & Output 09/22/18 09/23/18 09/23/18 18:59 06:59 18:59 Intake Total 2400 / 2400 1080 / 1080 Output Total 0 / 0 Balance 2400 / 2400 1080 / 1080 Weight 78.6 kg Intake: Oral 2400 / 2400 1080 / 1080 Output: Chest Tube Drainage 0 / 0 Right Lower 0 / 0 Other: # Voids 4 6 Date of Last Bowel Movement 09/19/18 09/19/18 # Bowel Movements 0 Impressions Pelvis Ultrasound 09/21/18 00:00 CONCLUSION: 1. IUD in the uterus. 2. Ovaries within normal limits. Chest X-Ray 09/22/18 00:00 CONCLUSION: Right chest tube without pneumothorax.
[2018-09-23] MEDS ORDERED: Metoprolol Tartrate 25 MG Tablet PO ONE (14:23)
[2018-09-23] MEDS ORDERED: Chlorhexidine Gluconate 2% 1 Pack (2 Cloths) TOPICAL ONE (14:23)
--- NOTE | 2018-09-23 14:59 | MB ---
cc: Jaime Booth MD DATE: 09/23/2018 REASON FOR CONSULTATION: Recurrent right pneumothorax COPD, and pleural bleb. HISTORY OF PRESENT ILLNESS: This 43-year-old female who presents to the emergency room [facility] with a large right-sided pneumothorax for which she had a chest tube placed and she was transferred to hospital [facility]. The patient was noted to have had a similar episode in 04/2018. Question arises which way to go now with this. PAST MEDICAL HISTORY: Recurring pneumothorax, COPD, and emphysema. SOCIAL HISTORY: The patient smokes about a half pack a day at this point. Used to smoke about 2 packs a day. Drinks socially. PHYSICAL EXAMINATION: GENERAL: Reveals a 43-year-old female. HEENT: Normocephalic. No trauma to the head. Pupils are equal and reactive. Extraocular muscles intact. NECK: Supple. Bilateral carotid pulses. No bruits. CHEST: Clear bilateral breath sounds. HEART: Regular rate and rhythm. LUNGS: The right lung is fully expanded. The patient has some atrophy of the chest wall musculature already, consistent with some degree of COPD. ABDOMEN: Soft. Active bowel sounds. No rebound, no guarding, no masses. EXTREMITIES: Within normal limits. The patient has good proximal and distal pulses. No signs of vascular deficit. BACK: Normal. NEUROLOGIC: The patient is fully intact. IMPRESSION AND RECOMMENDATIONS: A 43-year-old female with recurrent right-sided pneumothorax. This is seen as a spontaneous event in very young people of build, usually males, with heavy lifting and such. In those patients we usually wait for the second episode and then the patient undergoes bleb resection. The only exception to that rule are those working in very remote areas were there would have no help, at which point probably the first episode should be indication for the same. The second group of patients are the patients who are heavy smokers and develop COPD. This is sort of a young age; however, there is no question in my mind that the patient has weakness in the pleural lining, probably in the right upper lobe, contributing to this. At this point, the face of the second episode, I believe the best way to approach this is thoracoscopically with a bleb resection and pleurodesis. I explained to the patient the details. She will be taken to the operating room forthwith. Thank you very much for this referral. MD TRISHA Portillo/lucian , 12:55 PM , 01:02 PM
[2018-09-23] MEDS ORDERED: Sodium Chlor 0.9% Inj 500 ML IV.SIG SCH (15:00)
--- NOTE | 2018-09-23 15:43 | P.PNIM ---
Subjective Interval history: Follow up for spontaneous right pneumo/emphysema: Patient seen and examined, no chest pain, shortness of breath. No productive cough. Right lateral chest wall pain around insertion site of chest tube. Right lateral chest tube to waterseal, no air leak noted. No subcutaneous emphysema. Patient asking if she is going to have surgery. Has not had a BM for a couple of days. Physical Exam Vital signs: Vital Signs 09/22/18 18:19 09/22/18 20:03 09/22/18 23:21 Temperature 98.4 F 98.4 F 98.7 F Pulse Rate 91 H 91 H 95 H Respiratory Rate 20 16 17 Blood Pressure 96/51 L 97/64 L 103/62 Pulse Oximetry 97 98 94 L 09/23/18 08:00 09/23/18 12:00 Temperature 98.2 F 98.6 F Pulse Rate 94 H 93 H Respiratory Rate 16 16 Blood Pressure 108/53 L 96/60 L Pulse Oximetry 94 L 95 Intake & Output 09/22/18 09/23/18 09/23/18 18:59 06:59 18:59 Intake Total 2400 / 2400 1080 / 1080 Output Total 0 / 0 Balance 2400 / 2400 1080 / 1080 Weight 78.6 kg Intake: Oral 2400 / 2400 1080 / 1080 Output: Chest Tube Drainage 0 / 0 Right Lower 0 / 0 Other: # Voids 4 6 Date of Last Bowel Movement 09/19/18 09/19/18 # Bowel Movements 0 Narrative: GENERAL: 43-year-old well-nourished, well-developed patient. No apparent distress SKIN: Warm and dry. HEAD: Normocephalic. EYES: No scleral icterus. No injection or drainage. NECK: Supple, trachea midline. No JVD or lymphadenopathy. CARDIOVASCULAR: Regular rate and rhythm without murmurs, gallops, or rubs. Chest tube in place. RESPIRATORY: Breath sounds equal bilaterally. No accessory muscle use. Right lateral chest wall with chest tube, no subcutaneous emphysema. No air leak noted. Minimal serosanguineous drainage GASTROINTESTINAL: Abdomen soft, non-tender, nondistended. Bowel sounds normoactive x4. MUSCULOSKELETAL: No cyanosis, or edema. BACK: Nontender without obvious deformity. No CVA tenderness. NEURO: Awake, alert oriented x3. No focal deficits Results Labs CBC & Chem 7: 09/20/18 11:28 09/20/18 11:28 Assessment and Plan (1) Emphysema of lung: Code(s): J43.9 - Emphysema, unspecified Status: Acute (2) Recurrent spontaneous pneumothorax: Code(s): J93.83 - Other pneumothorax Status: Acute (3) Tobacco abuse: Code(s): Z72.0 - Tobacco use Status: Acute (4) Constipation: Code(s): K59.00 - Constipation, unspecified Status: Acute Plan 43-year-old female with a previous history of pneumothorax who presented to [facility] due to 3-day duration of shortness of breath. She was found to have significant pneumothorax and a chest tube was placed in the ED. Patient was subsequently transferred to the main hospital for further evaluation and treatment. Acute pneumothorax right-sided, recurrent History of recurrent pneumothorax, first time was April 2018 CT with findings of emphysema -Continue with right lateral chest tube, now at waterseal -Continue with pain managed Chest x-ray results noted -Dr. Ray following, input appreciated. Note reviewed, recommends thoracoscopy with pleurodesis. He has discussed with Dr. Lundberg -Appreciate Dr. Booth's input, d/w him. Plans to do right thoracoscopy with bleb resection and pleurodesis. Possibly going to or tomorrow or Monday, we will wait for further input Left lower quadrant abdominal pain -Ultrasound was negative, IUD in place, ovaries within normal limits -Appears to have resolved Tobacco abuse -Continue nicotine patch 7 mg. -Patient is advised to quit smoking -Patient is motivated, she is planning to talk to her PCP about possibly using Chantix Constipation, has not had a BM in 4-5 days Continue with bowel regimen, we will add lactulose as needed -Encourage increased mobility, p.o. fluids DVT prophylaxis --SCDs We will check labs preop, CBC, BMP, INR Code Status: Full code Discussed Condition With: RN, pt, CM Dr. Tamika Epps Discharge Planning: Home in 5-6 days
[2018-09-24] MEDS: oxyCODONE/Acetaminophen 10/325 Tablet PO PRN ×3 (00:25→20:40)
[2018-09-24 06:41] LABS: Hematocrit 35.1 % (35.0-46.0); Hemoglobin 11.6 gm/dL (11.6-15.3); Mean Corpuscular Volume 84.9 fL (80.0-100.0); Mean Platelet Volume 9.7 fL (7.0-11.0); Platelet Count 263 th/mm3 (150-450); Red Blood Count 4.14 mil/mm3 (4.00-5.30); Red Cell Distribution Width 15.3 % (11.6-17.2); White Blood Count 9.9 th/mm3 (4.0-11.0)
[2018-09-24 06:44] LABS: INR 0.9 Ratio; Prothrombin Time 9.4 sec (9.8-11.6)
[2018-09-24 07:01] LABS: Anion Gap 8 meq/L (5-15); Blood Urea Nitrogen 8 mg/dL (7-18); Calcium 9.1 mg/dL (8.5-10.1); Carbon Dioxide 27.4 meq/L (21.0-32.0); Chloride 104 meq/L (98-107); Glomerular Filtration Rate Greater Than 89 mL/min (>89); Glucose,Random 93 mg/dL (74-106); Potassium 3.9 meq/L (3.5-5.1); Sodium 139 meq/L (136-145)
[2018-09-24] MEDS ORDERED: Benzonatate 100 MG Capsule PO PRN (08:13)
--- NOTE | 2018-09-24 08:14 | P.PNIM ---
Subjective Interval history: Follow up for spontaneous right pneumo/emphysema: Patient seen and examined, n.p.o. overnight, going for thoracoscopy, bleb resection and pleurodesis. Increased cough, sosa sputum. No fever. No chills. No chest pain. Patient denies allergy to morphine, it states it occasionally gives her a headache. Did have a bowel movement yesterday. Intermittent wheezing. Right lateral chest tube to waterseal, no air leak, no output. Physical Exam Vital signs: Vital Signs 09/23/18 12:00 09/23/18 16:00 09/23/18 19:49 Temperature 98.6 F 97.8 F 98.7 F Pulse Rate 93 H 102 H 94 H Respiratory Rate 16 16 17 Blood Pressure 96/60 L 121/71 97/59 L Pulse Oximetry 95 93 L 97 09/24/18 00:19 09/24/18 04:28 Temperature 98.2 F 98.4 F Pulse Rate 83 82 Respiratory Rate 16 17 Blood Pressure 98/61 L 99/55 L Pulse Oximetry 94 L 95 Intake & Output 09/23/18 09/24/18 09/24/18 18:59 06:59 18:59 Intake Total 840 / 840 Output Total 0 / 0 Balance 0 / 0 840 / 840 Weight 79.2 kg Intake: Oral 840 / 840 Output: Chest Tube Drainage 0 / 0 Right Lower 0 / 0 Other: # Voids 6 7 Date of Last Bowel Movement 09/23/18 09/23/18 # Bowel Movements 1 1 Narrative: GENERAL: 43-year-old well-nourished, well-developed patient. No apparent distress SKIN: Warm and dry. HEAD: Normocephalic. EYES: No scleral icterus. No injection or drainage. NECK: Supple, trachea midline. No JVD or lymphadenopathy. CARDIOVASCULAR: Regular rate and rhythm without murmurs, gallops, or rubs. Chest tube in place. RESPIRATORY: Intermittent rhonchi upper lobes, productive cough. Right lateral chest wall with chest tube, no subcutaneous emphysema. No air leak noted. Minimal serosanguineous drainage GASTROINTESTINAL: Abdomen soft, non-tender, nondistended. Bowel sounds normoactive x4. MUSCULOSKELETAL: No cyanosis, or edema. BACK: Nontender without obvious deformity. No CVA tenderness. NEURO: Awake, alert oriented x3. No focal deficits Results Labs CBC & Chem 7: 09/24/18 05:54 09/24/18 05:54 Assessment and Plan (1) Emphysema of lung: Code(s): J43.9 - Emphysema, unspecified Status: Acute (2) Recurrent spontaneous pneumothorax: Code(s): J93.83 - Other pneumothorax Status: Acute (3) Tobacco abuse: Code(s): Z72.0 - Tobacco use Status: Acute (4) Constipation: Code(s): K59.00 - Constipation, unspecified Status: Acute Plan 43-year-old female with a previous history of pneumothorax who presented to [facility] due to 3-day duration of shortness of breath. She was found to have significant pneumothorax and a chest tube was placed in the ED. Patient was subsequently transferred to the [facility] hospital for further evaluation and treatment. Acute pneumothorax right-sided, recurrent History of recurrent pneumothorax, first time was April 2018 CT with findings of emphysema -Continue with right lateral chest tube, now at waterseal -Continue with pain managed, remove Morphine allergy Chest x-ray results noted -Dr. Ray following, input appreciated. Note reviewed, recommends thoracoscopy with pleurodesis. He has discussed with Dr. Lundberg -Appreciate Dr. Booth's input, patient going for right thoracoscopy with bleb resection and pleurodesis. Left lower quadrant abdominal pain -Ultrasound was negative, IUD in place, ovaries within normal limits -Appears to have resolved Emphysema COPD -add Duonebs q 8 and PRN -Tessalon perles 100 mg po q 8 prn cough Tobacco abuse -Continue nicotine patch 7 mg. -Patient is advised to quit smoking -Patient is motivated, she is planning to talk to her PCP about possibly using Chantix Constipation, has not had a BM in 4-5 days Continue with bowel regimen,added lactulose as needed -Encourage increased mobility, p.o. fluids -had BM last night DVT prophylaxis --SCDs Labs reviewed, stable will see after surgery Code Status: Full code Discussed Condition With: RN, pt and S.Jeri Epps CM Discharge Planning: Home in 5-6 days
[2018-09-24] MEDS ORDERED: Bupivacaine 0.5% Inj 50 ML MDV Vial ONE (10:55)
[2018-09-24] MEDS ORDERED: Heparin 10,000 UNITS/10 ML Vial (for IV use) ONE (11:38)
[2018-09-24] MEDS ORDERED: Heparin - SQ 10,000 UNITS/ML Vial ONE (11:38)
[2018-09-24] MEDS ORDERED: Lidocaine PF 1% Inj 5 ML Syringe OTHER ONE (12:35)
[2018-09-24] MEDS ORDERED: Normosol-R pH 7.4 Inj 1,000 ML IV.CONT ONE (12:35)
[2018-09-24] MEDS ORDERED: Sodium Chlor 0.9% Inj 500 ML IV.CONT ONE (12:35)
--- NOTE | 2018-09-24 12:51 | ECG ---
Date Performed: 09/23/2018 Time Performed: 22:12:04 PTAGE: 43 years EKG: Sinus rhythm NORMAL ECG NO PREVIOUS TRACING DOCTOR: Stephane Salinas Interpretating Date/Time 09/24/2018 12:49:10
[2018-09-24] MEDS ORDERED: HYDROmorphone PF Inj 2 MG/ML Vial ONE (14:06)
[2018-09-24] MEDS ORDERED: Sugammadex Inj 200 MG/2 ML Vial IV.PUSH ONE (14:06)
[2018-09-24] MEDS ORDERED: fentaNYL Citrate Inj 100 MCG/2 ML Ampul ONE ×2 (15:05→15:06)
[2018-09-24] MEDS ORDERED: *HYDROmorphone PF Inj 1 MG/ML Ampul PERIprocedural Use ONLY ONE ×3 (15:05→16:16)
[2018-09-24] MEDS ORDERED: *Meperidine Inj 25 MG/ML Vial PERIprocedural Use ONLY ONE (15:17)
--- NOTE | 2018-09-24 15:44 | XR ---
EXAM DATE: 09/24/2018 3:41 PM EST AGE/SEX: 43 years / Female INDICATIONS: Post chest tube placement CLINICAL DATA: This is the patient's subsequent encounter. Patient reports that signs and symptoms h ave been present for 3 days and indicates a pain score of Nonresponsive. MEDICAL/SURGICAL HISTORY: Non-responsive. Non-responsive. COMPARISON: [facility] [place], CT CHEST W/O CONTRAST, 09/20/2018. . FINDINGS: 2 large bore chest tubes in place on the right. There is no pneumothorax. The left lung is clear The heart and pulmonary vascularity are normal. The portion of the bony skeleton visualized is unremarkable. CONCLUSION: 2 large bore chest tubes in place on the right without pneumothorax Electronically signed by: Duarte Casey MD Board Certified Radiologist 09/24/2018 3:43 PM EST
[2018-09-24] MEDS: Senna/Docusate Sodium 8.6/50 MG Tablet PO SCH ×2 (16:58→20:40)
--- NOTE | 2018-09-24 18:39 | MP ---
cc: Jaime Booth MD DATE OF OPERATION: 09/24/2018 PREOPERATIVE DIAGNOSES: Recurrent spontaneous right pneumothorax, chronic obstructive pulmonary disease and pleural blebs. POSTOPERATIVE DIAGNOSES: Recurrent spontaneous right pneumothorax, chronic obstructive pulmonary disease and pleural blebs. OPERATIVE PROCEDURE: Right thoracoscopy resection of the bullae of the right lower lobe and the right upper lobe x3, pleurodesis. SURGEON: Jaime Booth MD ANESTHESIA: General. ESTIMATED BLOOD LOSS: About 50 mL DESCRIPTION OF PROCEDURE: The patient was prepped and draped in the usual fashion. The first port was placed in the right mid axillary line at about 8th intercostal space, just above the diaphragm. Through the port, the 30-degree camera was placed and after the lung is deflated, chest is visualized. The patient has some adhesions between the lateral chest wall and the lung, probably from the area of previous bleb ruptures. There is also some adherence and inflammation between the right lower lobe and the chest wall anteriorly. The second port is inserted somewhat more anteriorly at about 7th intercostal space. This allows for easy takedown of the adherent area to the chest wall using blunt dissection and irrigation instrument as well as EndoShears. A few more adhesions from the right upper lobe were taken down. Now, the lung was gently inflated prison and visualized. The patient had numerous of blebs at the edge of the right lower lobe by the fissure. The fissure is now widened by dissecting some of the anterior fissure pleura. Then a third port is inserted higher up in the posterior axillary line, at about the fourth intercostal space, to work in a triangular fashion. This port was also used to insert the stapler. The right lower lobe area was pulled up on the non-crushing lung clamp and then endoscopic RUIZ stapler with vascular load was fired across twice. A small segment of tissue removed. This was repeated a second time in the right lower lobe where the bullae were present. Then, the middle lobe was examined. Middle lobe looks pretty good and I do not see anything there. The right upper lobe on the apex has some bullous area, which I also grasped with clamp and elevated and then again stapled off with the stapler. The patient tolerated this procedure well. All the specimens were sent. Chest irrigated with copious amounts of saline. The parietal pleura is now irritated with the scratch pad on forceps, and then the surface of the lung is sprayed over with Tisseel. Lung is now expanded under direct vision and there is no leak that I can see. The lung expands easily. Lung is now collapsed partially again and 2 chest tubes placed, straight right apical anteriorly and then a posterior basal tube. These are sutured in place with 0 silk. Small port sites were closed with 0 Vicryl and 4-0 Monocryl. The patient taken out of the operating room in stable condition, both lungs inflated. No pneumothorax noted. MD TRISHA Portillo/lisseth , 04:29 PM , 04:40 PM
[2018-09-24] MEDS: Acetaminophen 325 MG Tablet PO PRN (22:17)
[2018-09-25] MEDS: oxyCODONE/Acetaminophen 10/325 Tablet PO PRN ×6 (00:35→23:03)
[2018-09-25] MEDS: Acetaminophen 325 MG Tablet PO PRN ×3 (05:36→20:59)
[2018-09-25] MEDS: Senna/Docusate Sodium 8.6/50 MG Tablet PO SCH ×2 (09:40→21:00)
--- NOTE | 2018-09-25 10:07 | P.PNVS ---
Subjective Subjective/Hospital Course: 43-year-old female with recurrent right-sided pneumothorax, first episode being in April followed by the current one. Full consult has been dictated At this point I believe patient will be best served with thoracoscopy and bleb resection and pleurodesis Will take patient to the operating room tomorrow 09/25/2018 Patient is status post right thoracoscopy pleurodesis and resection of the pleural blebs from the right lower lobe and right upper lobe Lung is fully expanded and chest tube drainage is serosanguineous Patient can be transferred to the floor at this time Chest tubes will stay until the drainage decreases probably by the end of the week both chest tubes will be out We will continue to follow Objective Vital Signs / I&O: Vital Signs 09/24/18 14:55 09/24/18 15:10 09/24/18 15:29 Temperature 98.0 F Pulse Rate 102 H 93 H 85 Respiratory Rate 24 20 20 Blood Pressure 117/77 118/73 108/70 Pulse Oximetry 97 97 94 L 09/24/18 15:44 09/24/18 16:10 09/24/18 16:34 Temperature 98.2 F Pulse Rate 98 H 92 H 93 H Respiratory Rate 18 20 25 H Blood Pressure 101/60 101/59 L Pulse Oximetry 95 97 98 09/24/18 17:00 09/24/18 17:04 09/24/18 17:33 Temperature Pulse Rate 96 H 86 90 Respiratory Rate 24 24 24 Blood Pressure 112/68 106/62 Pulse Oximetry 99 98 09/24/18 18:00 09/24/18 18:33 09/24/18 19:00 Temperature Pulse Rate 86 82 80 Respiratory Rate 19 29 H 26 H Blood Pressure 113/66 Pulse Oximetry 94 L 100 100 09/24/18 19:33 09/24/18 20:00 09/24/18 20:33 Temperature 98.2 F Pulse Rate 90 79 87 Respiratory Rate 33 H 30 H 29 H Blood Pressure 125/73 109/67 Pulse Oximetry 98 99 99 09/24/18 21:00 09/24/18 21:33 09/24/18 22:00 Temperature Pulse Rate 85 85 87 Respiratory Rate 22 28 H 26 H Blood Pressure 118/74 Pulse Oximetry 98 98 93 L 09/24/18 22:33 09/24/18 23:00 09/24/18 23:33 Temperature Pulse Rate 82 78 80 Respiratory Rate 17 21 26 H Blood Pressure 110/65 99/66 L Pulse Oximetry 99 98 98 09/25/18 00:00 09/25/18 00:33 09/25/18 01:00 Temperature 98 F Pulse Rate 78 70 74 Respiratory Rate 18 15 48 H Blood Pressure 111/63 Pulse Oximetry 99 97 99 09/25/18 02:00 09/25/18 02:33 09/25/18 02:41 Temperature Pulse Rate 75 67 74 Respiratory Rate 24 11 L 27 H Blood Pressure 90/57 L 99/58 L Pulse Oximetry 98 96 97 09/25/18 03:00 09/25/18 03:33 09/25/18 04:00 Temperature 98.1 F Pulse Rate 79 68 67 Respiratory Rate 45 H 12 23 Blood Pressure 99/54 L Pulse Oximetry 100 95 98 09/25/18 04:20 09/25/18 04:33 09/25/18 05:00 Temperature Pulse Rate 62 85 91 H Respiratory Rate 17 22 25 H Blood Pressure 107/60 Pulse Oximetry 99 99 09/25/18 05:33 09/25/18 06:00 09/25/18 06:33 Temperature Pulse Rate 90 90 83 Respiratory Rate 23 23 33 H Blood Pressure 102/61 104/62 Pulse Oximetry 98 99 100 Intake & Output 09/24/18 09/25/18 09/25/18 18:59 06:59 18:59 Intake Total 1100 / 1100 860 / 860 Output Total 230 / 230 1710 / 1710 Balance 870 / 870 -850 / -850 Weight 80.6 kg Intake: Oral 860 / 860 Anesthesia Amount 1100 / 1100 Output: Urine 1650 / 1650 Estimated Blood Loss 150 / 150 Chest Tube Drainage 80 / 80 60 / 60 Right Y Connected 80 / 80 60 / 60 Other: Date of Last Bowel Movement 09/23/18 09/23/18 Impressions Chest X-Ray 09/24/18 00:00 CONCLUSION: 2 large bore chest tubes in place on the right without pneumothorax
--- NOTE | 2018-09-25 20:48 | P.PNIM ---
Subjective Interval history: 43-year-old female status post recurrent pneumothorax underwent right sided thorascopic resection of bullae in right lower lobe and right upper lobe with pleurodesis Patient seen and examined, doing fairly well, denies dizziness still has some mild shortness of breath and pain postoperative no nausea vomiting Physical Exam Vital signs: Vital Signs 09/24/18 21:00 09/24/18 21:33 09/24/18 22:00 Temperature Pulse Rate 85 85 87 Respiratory Rate 22 28 H 26 H Blood Pressure 118/74 Pulse Oximetry 98 98 93 L 09/24/18 22:33 09/24/18 23:00 09/24/18 23:33 Temperature Pulse Rate 82 78 80 Respiratory Rate 17 21 26 H Blood Pressure 110/65 99/66 L Pulse Oximetry 99 98 98 09/25/18 00:00 09/25/18 00:33 09/25/18 01:00 Temperature 98 F Pulse Rate 78 70 74 Respiratory Rate 18 15 48 H Blood Pressure 111/63 Pulse Oximetry 99 97 99 09/25/18 02:00 09/25/18 02:33 09/25/18 02:41 Temperature Pulse Rate 75 67 74 Respiratory Rate 24 11 L 27 H Blood Pressure 90/57 L 99/58 L Pulse Oximetry 98 96 97 09/25/18 03:00 09/25/18 03:33 09/25/18 04:00 Temperature 98.1 F Pulse Rate 79 68 67 Respiratory Rate 45 H 12 23 Blood Pressure 99/54 L Pulse Oximetry 100 95 98 09/25/18 04:20 09/25/18 04:33 09/25/18 05:00 Temperature Pulse Rate 62 85 91 H Respiratory Rate 17 22 25 H Blood Pressure 107/60 Pulse Oximetry 99 99 09/25/18 05:33 09/25/18 06:00 09/25/18 06:33 Temperature Pulse Rate 90 90 83 Respiratory Rate 23 23 33 H Blood Pressure 102/61 104/62 Pulse Oximetry 98 99 100 09/25/18 07:00 09/25/18 07:33 09/25/18 08:00 Temperature Pulse Rate 71 75 74 Respiratory Rate 27 H 24 18 Blood Pressure 112/59 L Pulse Oximetry 100 98 97 09/25/18 08:33 09/25/18 08:39 09/25/18 09:00 Temperature Pulse Rate 82 78 77 Respiratory Rate 16 17 18 Blood Pressure 89/53 L 94/59 L Pulse Oximetry 94 L 97 99 09/25/18 09:33 09/25/18 10:00 09/25/18 10:33 Temperature Pulse Rate 79 82 83 Respiratory Rate 22 22 33 H Blood Pressure 102/64 111/65 Pulse Oximetry 99 97 99 09/25/18 11:00 09/25/18 11:33 09/25/18 11:59 Temperature Pulse Rate 79 85 Respiratory Rate 29 H 20 18 Blood Pressure 103/63 Pulse Oximetry 98 99 09/25/18 12:00 09/25/18 12:29 09/25/18 12:33 Temperature Pulse Rate 85 82 71 Respiratory Rate 24 18 8 L Blood Pressure 120/63 Pulse Oximetry 99 100 09/25/18 13:00 09/25/18 13:33 09/25/18 14:00 Temperature Pulse Rate 93 H 104 H 99 H Respiratory Rate 29 H 30 H 37 H Blood Pressure 107/58 L Pulse Oximetry 97 98 100 09/25/18 14:33 09/25/18 15:00 09/25/18 15:33 Temperature Pulse Rate 102 H 98 H 100 H Respiratory Rate 26 H 32 H 31 H Blood Pressure 108/58 L 115/77 Pulse Oximetry 99 98 97 09/25/18 16:00 09/25/18 16:33 09/25/18 17:00 Temperature Pulse Rate 101 H Respiratory Rate 28 H Blood Pressure 119/66 Pulse Oximetry 96 100 98 09/25/18 17:33 09/25/18 18:00 09/25/18 18:35 Temperature Pulse Rate 87 89 Respiratory Rate 23 27 H 18 Blood Pressure 112/72 Pulse Oximetry 100 100 09/25/18 19:41 Temperature Pulse Rate 83 Respiratory Rate 18 Blood Pressure Pulse Oximetry Intake & Output 09/25/18 09/25/18 09/26/18 06:59 18:59 06:59 Intake Total 860 / 860 1200 / 1200 Output Total 1710 / 1710 2039 / 2039 Balance -850 / -850 -840 / -840 Weight 80.6 kg Intake: Oral 860 / 860 1200 / 1200 Output: Urine 1650 / 1650 1950 / 1950 Chest Tube Drainage 60 / 60 90 / 90 Right Y Connected 60 / 60 90 / 90 Other: Date of Last Bowel Movement 09/23/18 09/23/18 Narrative: Pleasant well-developed well-nourished 43-year-old white female Awake alert oriented no acute distress Heart S1-S2 regular tachycardic Lungs Rales right base chest tube in place good expansion Abdomen soft nondistended positive bowel sounds Extremities no clubbing cyanosis no significant edema Results Labs CBC & Chem 7: 09/24/18 05:54 09/24/18 05:54 Assessment and Plan (1) Emphysema of lung: Code(s): J43.9 - Emphysema, unspecified Status: Acute (2) Recurrent spontaneous pneumothorax: Code(s): J93.83 - Other pneumothorax Status: Acute (3) Tobacco abuse: Code(s): Z72.0 - Tobacco use Status: Acute (4) Constipation: Code(s): K59.00 - Constipation, unspecified Status: Acute 43-year-old female with a previous history of pneumothorax who presented to [facility] due to 3-day duration of shortness of breath. She was found to have significant pneumothorax and a chest tube was placed in the ED. Patient was subsequently transferred to the main hospital for further evaluation and treatment. ACUTE and RECURRENT PNEUMOTHORAX R LUNG s/p VATS/BLEB resection/PLEURODESIS POD# 1 - cont w ct, fu cts SEVERE EMPHYSEMA w BLEBS likely cause of recurrent pneumothorax work up for alpha 1 antitrypsin def if not done. LLQ ABD PAIN - us neg, resolved CHRONIC TOBACCO ABUSE/NICOTINE ADDICTION-Continue nicotine patch 7 mg. -Patient is advised to quit smoking CONSTIPATION - bowel regimen, dvt prophylaxis - scd dispo - home when tubes out/stable.
[2018-09-25] MEDS: Ketorolac Inj 30 MG/ML (IVP) Vial IV.PUSH SCH (21:03)
[2018-09-25] MEDS: Famotidine 20 MG Tablet PO SCH (21:03)
[2018-09-25] MEDS: Zolpidem Tartrate 5 MG Tablet PO PRN (22:57)
[2018-09-26] MEDS: oxyCODONE/Acetaminophen 10/325 Tablet PO PRN ×5 (02:56→22:32)
[2018-09-26] MEDS: Ketorolac Inj 30 MG/ML (IVP) Vial IV.PUSH SCH ×3 (04:54→22:22)
[2018-09-26] MEDS: Famotidine 20 MG Tablet PO SCH ×2 (09:12→22:21)
[2018-09-26] MEDS: Multivitamin/Minerals Therapeutic Tablet PO SCH (09:12)
[2018-09-26] MEDS: Senna/Docusate Sodium 8.6/50 MG Tablet PO SCH ×2 (09:13→22:21)
--- NOTE | 2018-09-26 10:33 | P.PNIM ---
Subjective Interval history: 43yo w f s/p vats w pleurodesis for recurrent R Pneumothorax POD #2 pt seen and examined doing a little better coughed up some bloody sputum yesterday, pain fair, ct drainage slowing, no nv, Physical Exam Vital signs: Vital Signs 09/25/18 10:33 09/25/18 11:00 09/25/18 11:33 Temperature Pulse Rate 83 79 85 Respiratory Rate 33 H 29 H 20 Blood Pressure 111/65 103/63 Pulse Oximetry 99 98 99 09/25/18 11:59 09/25/18 12:00 09/25/18 12:29 Temperature Pulse Rate 85 82 Respiratory Rate 18 24 18 Blood Pressure Pulse Oximetry 99 09/25/18 12:33 09/25/18 13:00 09/25/18 13:33 Temperature Pulse Rate 71 93 H 104 H Respiratory Rate 8 L 29 H 30 H Blood Pressure 120/63 107/58 L Pulse Oximetry 100 97 98 09/25/18 14:00 09/25/18 14:33 09/25/18 15:00 Temperature Pulse Rate 99 H 102 H 98 H Respiratory Rate 37 H 26 H 32 H Blood Pressure 108/58 L Pulse Oximetry 100 99 98 09/25/18 15:33 09/25/18 16:00 09/25/18 16:33 Temperature Pulse Rate 100 H 101 H Respiratory Rate 31 H 28 H Blood Pressure 115/77 119/66 Pulse Oximetry 97 96 100 09/25/18 17:00 09/25/18 17:33 09/25/18 18:00 Temperature Pulse Rate 87 89 Respiratory Rate 23 27 H Blood Pressure 112/72 Pulse Oximetry 98 100 100 09/25/18 18:33 09/25/18 18:35 09/25/18 19:00 Temperature Pulse Rate 96 H 87 Respiratory Rate 18 18 18 Blood Pressure 117/72 Pulse Oximetry 100 98 09/25/18 19:33 09/25/18 19:41 09/25/18 20:00 Temperature 98.2 F Pulse Rate 86 83 84 Respiratory Rate 20 18 24 Blood Pressure 122/75 Pulse Oximetry 99 94 L 09/25/18 21:58 09/25/18 22:05 09/25/18 23:12 Temperature 98.2 F Pulse Rate 90 Respiratory Rate 18 18 18 Blood Pressure 101/58 L Pulse Oximetry 99 09/26/18 00:00 09/26/18 03:04 09/26/18 04:00 Temperature 98.2 F Pulse Rate 90 94 H Respiratory Rate 18 16 18 Blood Pressure 100/54 L Pulse Oximetry 95 09/26/18 08:00 Temperature 98.8 F Pulse Rate 88 Respiratory Rate 18 Blood Pressure 108/59 L Pulse Oximetry 97 Intake & Output 09/25/18 09/26/18 09/26/18 18:59 06:59 18:59 Intake Total 1200 / 1200 700 / 700 Output Total 204 / 2040 440 / 440 300 / 300 Balance -840 / -840 260 / 260 -300 / -300 Weight 79.9 kg Intake: Oral 1200 / 1200 700 / 700 Output: Urine 1950 / 1950 400 / 400 300 / 300 Chest Tube Drainage 90 / 90 40 / 40 Right Y Connected 90 / 90 40 / 40 Other: Date of Last Bowel Movement 09/23/18 09/23/18 Narrative: Pleasant well-developed well-nourished 43-year-old white female Awake alert oriented no acute distress Heart S1-S2 regular tachycardic Lungs right lung decreased bs chest tube in place good expansion left Abdomen soft nondistended positive bowel sounds Extremities no clubbing cyanosis no significant edema Results Labs CBC & Chem 7: 09/24/18 05:54 09/24/18 05:54 Assessment and Plan (1) Emphysema of lung: Code(s): J43.9 - Emphysema, unspecified Status: Acute (2) Recurrent spontaneous pneumothorax: Code(s): J93.83 - Other pneumothorax Status: Acute (3) Tobacco abuse: Code(s): Z72.0 - Tobacco use Status: Acute (4) Constipation: Code(s): K59.00 - Constipation, unspecified Status: Acute 43-year-old female with a previous history of pneumothorax who presented to [facility] due to 3-day duration of shortness of breath. She was found to have significant pneumothorax and a chest tube was placed in the ED. Patient was subsequently transferred to the main hospital for further evaluation and treatment. ACUTE and RECURRENT PNEUMOTHORAX R LUNG s/p VATS/BLEB resection/PLEURODESIS POD# 2 - cont w ct, fu cts, pain control, oob as tolerated SEVERE EMPHYSEMA w BLEBS likely cause of recurrent pneumothorax work up for alpha 1 antitrypsin def, fu w pulm add spiriva and albuterol, is LLQ ABD PAIN - us neg, resolved CHRONIC TOBACCO ABUSE/NICOTINE ADDICTION-Continue nicotine patch 7 mg. -Patient is advised to quit smoking CONSTIPATION - bowel regimen, dvt prophylaxis - scd dispo - home when tubes out/stable.
[2018-09-26] MEDS: Acetaminophen 325 MG Tablet PO PRN ×2 (12:20→19:47)
--- NOTE | 2018-09-26 14:45 | P.PNVS ---
Subjective Subjective/Hospital Course: 43-year-old female with recurrent right-sided pneumothorax, first episode being in April followed by the current one. Full consult has been dictated At this point I believe patient will be best served with thoracoscopy and bleb resection and pleurodesis Will take patient to the operating room tomorrow 09/25/2018 Patient is status post right thoracoscopy pleurodesis and resection of the pleural blebs from the right lower lobe and right upper lobe Lung is fully expanded and chest tube drainage is serosanguineous Patient can be transferred to the floor at this time Chest tubes will stay until the drainage decreases probably by the end of the week both chest tubes will be out We will continue to follow 09/26/2018 Patient doing well at this time Lungs are fully expanded with bilateral breath sounds Chest tube drainage still about 300 cc over 24 hours so we will leave chest tubes in place Patient has been transferred to the floor however 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 Likely will be able to pull the first chest tube out on Monday and the next one few days later Objective Vital Signs / I&O: Vital Signs 09/25/18 15:00 09/25/18 15:33 09/25/18 16:00 Temperature Pulse Rate 98 H 100 H 101 H Respiratory Rate 32 H 31 H 28 H Blood Pressure 115/77 Pulse Oximetry 98 97 96 09/25/18 16:33 09/25/18 17:00 09/25/18 17:33 Temperature Pulse Rate 87 Respiratory Rate 23 Blood Pressure 119/66 112/72 Pulse Oximetry 100 98 100 09/25/18 18:00 09/25/18 18:33 09/25/18 18:35 Temperature Pulse Rate 89 96 H Respiratory Rate 27 H 18 18 Blood Pressure 117/72 Pulse Oximetry 100 100 09/25/18 19:00 09/25/18 19:33 09/25/18 19:41 Temperature Pulse Rate 87 86 83 Respiratory Rate 18 20 18 Blood Pressure 122/75 Pulse Oximetry 98 99 09/25/18 20:00 09/25/18 21:58 09/25/18 22:05 Temperature 98.2 F Pulse Rate 84 Respiratory Rate 24 18 18 Blood Pressure Pulse Oximetry 94 L 09/25/18 23:12 09/26/18 00:00 09/26/18 03:04 Temperature 98.2 F Pulse Rate 90 90 Respiratory Rate 18 18 16 Blood Pressure 101/58 L Pulse Oximetry 99 09/26/18 04:00 09/26/18 08:00 09/26/18 09:45 Temperature 98.2 F 98.8 F Pulse Rate 94 H 88 Respiratory Rate 18 18 15 Blood Pressure 100/54 L 108/59 L Pulse Oximetry 95 97 09/26/18 12:00 09/26/18 12:17 Temperature 98.6 F Pulse Rate 104 H 88 Respiratory Rate 18 15 Blood Pressure 106/67 Pulse Oximetry 97 Intake & Output 09/25/18 09/26/18 09/26/18 18:59 06:59 18:59 Intake Total 1200 / 1200 700 / 700 Output Total 2040 / 2040 440 / 440 300 / 300 Balance -840 / -840 260 / 260 -300 / -300 Weight 79.9 kg Intake: Oral 1200 / 1200 700 / 700 Output: Urine 1950 / 1950 400 / 400 300 / 300 Chest Tube Drainage 90 / 90 40 / 40 Right Y Connected 90 / 90 40 / 40 Other: Date of Last Bowel Movement 09/23/18 09/23/18 Impressions Chest X-Ray 09/24/18 00:00 CONCLUSION: 2 large bore chest tubes in place on the right without pneumothorax
[2018-09-26] MEDS: Tiotropium Bromide 18 MCG/ACT Inhaler INH SCH (17:19)
[2018-09-26] MEDS: Zolpidem Tartrate 5 MG Tablet PO PRN (22:33)
[2018-09-27] MEDS: oxyCODONE/Acetaminophen 10/325 Tablet PO PRN ×5 (02:39→20:44)
[2018-09-27] MEDS: Ketorolac Inj 30 MG/ML (IVP) Vial IV.PUSH SCH ×2 (05:28→14:59)
[2018-09-27] MEDS: Famotidine 20 MG Tablet PO SCH ×2 (08:35→20:43)
[2018-09-27] MEDS: Multivitamin/Minerals Therapeutic Tablet PO SCH (08:35)
[2018-09-27] MEDS: Tiotropium Bromide 18 MCG/ACT Inhaler INH SCH (08:38)
[2018-09-27] MEDS: Senna/Docusate Sodium 8.6/50 MG Tablet PO SCH ×2 (08:38→20:44)
[2018-09-27] MEDS: Acetaminophen 325 MG Tablet PO PRN (08:44)
--- NOTE | 2018-09-27 10:21 | P.PNVS ---
Subjective Subjective/Hospital Course: 43-year-old female with recurrent right-sided pneumothorax, first episode being in April followed by the current one. Full consult has been dictated At this point I believe patient will be best served with thoracoscopy and bleb resection and pleurodesis Will take patient to the operating room tomorrow 09/25/2018 Patient is status post right thoracoscopy pleurodesis and resection of the pleural blebs from the right lower lobe and right upper lobe Lung is fully expanded and chest tube drainage is serosanguineous Patient can be transferred to the floor at this time Chest tubes will stay until the drainage decreases probably by the end of the week both chest tubes will be out We will continue to follow 09/26/2018 Patient doing well at this time Lungs are fully expanded with bilateral breath sounds Chest tube drainage still about 300 cc over 24 hours so we will leave chest tubes in place Patient has been transferred to the floor however 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 Likely will be able to pull the first chest tube out on Monday and the next one few days later 09/27/2018 Bilateral good breath sounds pulmonary full expansion We will remove the basal chest tube today Dressing has not been changed since I changed it after the surgery on Monday Chest tubes remain in good position despite lack of dressing and wound care Objective Vital Signs / I&O: Vital Signs 09/26/18 12:00 09/26/18 12:17 09/26/18 12:50 Temperature 98.6 F Pulse Rate 104 H 88 Respiratory Rate 18 15 15 Blood Pressure 106/67 Pulse Oximetry 97 09/26/18 13:00 09/26/18 14:00 09/26/18 16:00 Temperature 98.4 F Pulse Rate 93 H Respiratory Rate 15 15 18 Blood Pressure 129/61 Pulse Oximetry 100 09/26/18 18:00 09/26/18 20:00 09/26/18 20:23 Temperature 98.3 F Pulse Rate 100 H 90 Respiratory Rate 18 17 16 Blood Pressure 107/65 Pulse Oximetry 99 09/27/18 00:00 09/27/18 04:00 09/27/18 04:14 Temperature 98.0 F 98.4 F Pulse Rate 80 91 H 85 Respiratory Rate 17 17 15 Blood Pressure 111/63 109/54 L Pulse Oximetry 98 97 09/27/18 08:00 Temperature 98 F Pulse Rate 90 Respiratory Rate 18 Blood Pressure 101/58 L Pulse Oximetry 96 Intake & Output 09/26/18 09/27/18 09/27/18 18:59 06:59 18:59 Intake Total 700 / 700 Output Total 300 / 300 70 / 70 Balance -300 / -300 700 / 700 -70 / -70 Intake: Oral 700 / 700 Output: Urine 300 / 300 Chest Tube Drainage 70 / 70 Right Y Connected 70 / 70 Other: # Voids 2 2 Date of Last Bowel Movement 09/23/18 09/27/18
--- NOTE | 2018-09-27 16:42 | P.PNIM ---
Subjective Interval history: 43yo w f s/p vats w pleurodesis for recurrent R pneumothorax POD#2 pt seen and examined, sitting up in chair, doing ok, no nv, no fever, Physical Exam Vital signs: Vital Signs 09/26/18 18:00 09/26/18 20:00 09/26/18 20:23 Temperature 98.3 F Pulse Rate 100 H 90 Respiratory Rate 18 17 16 Blood Pressure 107/65 Pulse Oximetry 99 09/27/18 00:00 09/27/18 04:00 09/27/18 04:14 Temperature 98.0 F 98.4 F Pulse Rate 80 91 H 85 Respiratory Rate 17 17 15 Blood Pressure 111/63 109/54 L Pulse Oximetry 98 97 09/27/18 08:00 09/27/18 10:36 09/27/18 11:02 Temperature 98 F Pulse Rate 90 86 Respiratory Rate 18 18 20 Blood Pressure 101/58 L Pulse Oximetry 96 09/27/18 12:00 09/27/18 14:59 Temperature 98.5 F Pulse Rate 77 Respiratory Rate 18 20 Blood Pressure 122/64 Pulse Oximetry 95 Intake & Output 09/26/18 09/27/18 09/27/18 18:59 06:59 18:59 Intake Total 700 / 700 Output Total 300 / 300 70 / 70 Balance -300 / -300 700 / 700 -70 / -70 Intake: Oral 700 / 700 Output: Urine 300 / 300 Chest Tube Drainage 70 / 70 Right Y Connected 70 / 70 Other: # Voids 2 2 Date of Last Bowel Movement 09/23/18 09/27/18 Narrative: Pleasant well-developed well-nourished 43-year-old white female Awake alert oriented no acute distress Heart S1-S2 regular tachycardic Lungs right lung improved bs chest tube in place good expansion left Abdomen soft nondistended positive bowel sounds Extremities no clubbing cyanosis no significant edema Results Labs CBC & Chem 7: 09/24/18 05:54 09/24/18 05:54 Assessment and Plan (1) Emphysema of lung: Code(s): J43.9 - Emphysema, unspecified Status: Acute (2) Recurrent spontaneous pneumothorax: Code(s): J93.83 - Other pneumothorax Status: Acute (3) Tobacco abuse: Code(s): Z72.0 - Tobacco use Status: Acute (4) Constipation: Code(s): K59.00 - Constipation, unspecified Status: Acute 43-year-old female with a previous history of pneumothorax who presented to [facility] due to 3-day duration of shortness of breath. She was found to have significant pneumothorax and a chest tube was placed in the ED. Patient was subsequently transferred to the main hospital for further evaluation and treatment. ACUTE and RECURRENT PNEUMOTHORAX R LUNG s/p VATS/BLEB resection/PLEURODESIS POD# 2 - cont w ct, fu cts, pain control, oob as tolerated SEVERE EMPHYSEMA w BLEBS likely cause of recurrent pneumothorax work up for alpha 1 antitrypsin def pending, fu w pulm add spiriva and albuterol, is encouraged, LLQ ABD PAIN - us neg, resolved CHRONIC TOBACCO ABUSE/NICOTINE ADDICTION-Continue nicotine patch 7 mg. -Patient is advised to quit smoking CONSTIPATION - bowel regimen, dvt prophylaxis - scd dispo - home when tubes out/stable.
[2018-09-27] MEDS: Zolpidem Tartrate 5 MG Tablet PO PRN (20:43)
[2018-09-28] MEDS: oxyCODONE/Acetaminophen 10/325 Tablet PO PRN ×4 (03:47→20:45)
--- NOTE | 2018-09-28 06:10 | XR ---
EXAM DATE: 09/28/2018 3:46 AM EST AGE/SEX: 43 years / Female INDICATIONS: Pneumothorax. CLINICAL DATA: This is the patient's subsequent encounter. Patient reports that signs and symptoms h ave been present for 1 week and indicates a pain score of 0/10. MEDICAL/SURGICAL HISTORY: None. Chest tube, right. COMPARISON: [facility] [place], CHEST 1V SINGLE AP, 09/24/2018. . FINDINGS: 1 of 2 right thoracostomy tubes has been removed.. There is some atelectasis or scarring in the right base at site of previous tube. Diffuse interstitial prominence elsewhere in the lungs is unchanged. Cardiac contours are stable. CONCLUSION: 1 of 2 right thoracostomy tubes removed without complication. Electronically signed by: Cal Dao MD Board Certified Radiologist 09/28/2018 6:09 AM EST
[2018-09-28] MEDS: Multivitamin/Minerals Therapeutic Tablet PO SCH (09:46)
[2018-09-28] MEDS: Senna/Docusate Sodium 8.6/50 MG Tablet PO SCH ×2 (09:46→20:45)
[2018-09-28] MEDS: Famotidine 20 MG Tablet PO SCH ×2 (09:47→20:45)
[2018-09-28] MEDS: Tiotropium Bromide 18 MCG/ACT Inhaler INH SCH (09:48)
--- NOTE | 2018-09-28 16:58 | P.DIET ---
Nutritional Evaluation Type of nutrition evaluation: follow-up Nutrition consult regarding: Diet Evaluation Nutrition screening: Weight Loss > 10 lbs Screening comments: 09/21/18 WLS Subjective Subjective Comments: Pt mentioned she had a good appetite and had no major issues nutritionally during RD visit. Objective - Diagnosis Spontaneous pneumothorax - Objective Dietitian Reviewed in Medical Record: Current diet, Curent medications, Intake & Output, Labs, Medical history Diet Order: regular Oral Diet Intake Amount: Excellent 90%+ Objective Comments: PMH: COPD, pneumothorax on right Assessment Assessment: Pt not at nutritional risk. She is eating well, has reported good appetite and her BMI = 30.3. [address] if needed.
--- NOTE | 2018-09-28 17:52 | P.PNIM ---
Subjective Interval history: s/p VATS for recurrent pneumothorax pt seen and examined doing better, still w ct in place, pain fairly controlled , no sputum or hemoptysis Physical Exam Vital signs: Vital Signs 09/27/18 20:00 09/28/18 00:00 09/28/18 04:00 Temperature 98.9 F 98.2 F 98.6 F Pulse Rate 94 H 102 H 84 Respiratory Rate 18 14 18 Blood Pressure 104/60 105/67 98/63 L Pulse Oximetry 99 97 97 09/28/18 08:00 09/28/18 10:53 09/28/18 11:48 Temperature 98.9 F 99.2 F Pulse Rate 90 92 H 92 H Respiratory Rate 16 18 16 Blood Pressure 106/59 L 108/63 Pulse Oximetry 92 L 94 L 09/28/18 16:00 Temperature 99.1 F Pulse Rate 88 Respiratory Rate 18 Blood Pressure 93/56 L Pulse Oximetry 97 Intake & Output 09/27/18 09/28/18 09/28/18 18:59 06:59 18:59 Intake Total 960 / 960 Output Total 100 / 100 Balance 860 / 860 Intake: Oral 960 / 960 Output: Wound Drainage 30 / 30 # 2 Right Lateral Chest 30 / 30 Chest Tube Drainage 70 / 70 Right Y Connected 70 / 70 Other: # Voids 3 Date of Last Bowel Movement 09/27/18 09/27/18 # Bowel Movements 1 Narrative: Pleasant well-developed well-nourished 43-year-old white female Awake alert oriented no acute distress Heart S1-S2 regular tachycardic Lungs right lung continue improved bs chest tube in place good expansion left clear no wheeze Abdomen soft nondistended positive bowel sounds Extremities no clubbing cyanosis no significant edema Results Labs CBC & Chem 7: 09/24/18 05:54 09/24/18 05:54 Imaging Imaging: Impressions Chest X-Ray 09/28/18 00:00 CONCLUSION: 1 of 2 right thoracostomy tubes removed without complication. Assessment and Plan (1) Emphysema of lung: Code(s): J43.9 - Emphysema, unspecified Status: Acute (2) Recurrent spontaneous pneumothorax: Code(s): J93.83 - Other pneumothorax Status: Acute (3) Tobacco abuse: Code(s): Z72.0 - Tobacco use Status: Acute (4) Constipation: Code(s): K59.00 - Constipation, unspecified Status: Acute 43-year-old female with a previous history of pneumothorax who presented to [facility] due to 3-day duration of shortness of breath. She was found to have significant pneumothorax and a chest tube was placed in the ED. Patient was subsequently transferred to the main hospital for further evaluation and treatment. ACUTE and RECURRENT PNEUMOTHORAX R LUNG s/p VATS/BLEB resection/PLEURODESIS POD# 2 - cont w ct, fu cts, pain control, oob as tolerated SEVERE EMPHYSEMA w BLEBS likely cause of recurrent pneumothorax work up for alpha 1 antitrypsin nml, fu w pulm add spiriva and albuterol, is encouraged, ct out tomorrow planned LLQ ABD PAIN - us neg, resolved CHRONIC TOBACCO ABUSE/NICOTINE ADDICTION-Continue nicotine patch 7 mg. -Patient is advised to quit smoking CONSTIPATION - bowel regimen, dvt prophylaxis - scd dispo - home when tubes out/stable.
--- NOTE | 2018-09-28 18:50 | P.PNVS ---
Subjective Subjective/Hospital Course: 43-year-old female with recurrent right-sided pneumothorax, first episode being in April followed by the current one. Full consult has been dictated At this point I believe patient will be best served with thoracoscopy and bleb resection and pleurodesis Will take patient to the operating room tomorrow 09/25/2018 Patient is status post right thoracoscopy pleurodesis and resection of the pleural blebs from the right lower lobe and right upper lobe Lung is fully expanded and chest tube drainage is serosanguineous Patient can be transferred to the floor at this time Chest tubes will stay until the drainage decreases probably by the end of the week both chest tubes will be out We will continue to follow 09/26/2018 Patient doing well at this time Lungs are fully expanded with bilateral breath sounds Chest tube drainage still about 300 cc over 24 hours so we will leave chest tubes in place Patient has been transferred to the floor however 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 Likely will be able to pull the first chest tube out on Monday and the next one few days later 09/27/2018 Bilateral good breath sounds pulmonary full expansion We will remove the basal chest tube today Dressing has not been changed since I changed it after the surgery on Monday Chest tubes remain in good position despite lack of dressing and wound care 09/28/2018 Right lung fully expanded Basal chest tube has been removed yesterday and provided no surprises the last chest tube will be removed tomorrow Incision sites are clean and dry Pain regimen is well-tolerated with Objective Vital Signs / I&O: Vital Signs 09/27/18 20:00 09/28/18 00:00 09/28/18 04:00 Temperature 98.9 F 98.2 F 98.6 F Pulse Rate 94 H 102 H 84 Respiratory Rate 18 14 18 Blood Pressure 104/60 105/67 98/63 L Pulse Oximetry 99 97 97 09/28/18 08:00 09/28/18 10:53 09/28/18 11:48 Temperature 98.9 F 99.2 F Pulse Rate 90 92 H 92 H Respiratory Rate 16 18 16 Blood Pressure 106/59 L 108/63 Pulse Oximetry 92 L 94 L 09/28/18 16:00 Temperature 99.1 F Pulse Rate 88 Respiratory Rate 18 Blood Pressure 93/56 L Pulse Oximetry 97 Intake & Output 09/27/18 09/28/18 09/28/18 18:59 06:59 18:59 Intake Total 960 / 960 Output Total 100 / 100 Balance 860 / 860 Intake: Oral 960 / 960 Output: Wound Drainage 30 / 30 # 2 Right Lateral Chest 30 / 30 Chest Tube Drainage 70 / 70 Right Y Connected 70 / 70 Other: # Voids 3 Date of Last Bowel Movement 09/27/18 09/27/18 # Bowel Movements 1 Laboratory Results - last 24 hr 09/26/18 06:46 [id number] 254 H Impressions Chest X-Ray 09/28/18 00:00 CONCLUSION: 1 of 2 right thoracostomy tubes removed without complication.
[2018-09-28] MEDS: Zolpidem Tartrate 5 MG Tablet PO PRN (20:45)
[2018-09-29] MEDS: oxyCODONE/Acetaminophen 10/325 Tablet PO PRN ×4 (01:52→23:06)
[2018-09-29] MEDS: Famotidine 20 MG Tablet PO SCH ×2 (12:00→20:25)
[2018-09-29] MEDS: Multivitamin/Minerals Therapeutic Tablet PO SCH (12:00)
[2018-09-29] MEDS: Senna/Docusate Sodium 8.6/50 MG Tablet PO SCH ×2 (12:00→20:25)
--- NOTE | 2018-09-29 12:00 | P.PNVS ---
Subjective Subjective/Hospital Course: 43-year-old female with recurrent right-sided pneumothorax, first episode being in April followed by the current one. Full consult has been dictated At this point I believe patient will be best served with thoracoscopy and bleb resection and pleurodesis Will take patient to the operating room tomorrow 09/25/2018 Patient is status post right thoracoscopy pleurodesis and resection of the pleural blebs from the right lower lobe and right upper lobe Lung is fully expanded and chest tube drainage is serosanguineous Patient can be transferred to the floor at this time Chest tubes will stay until the drainage decreases probably by the end of the week both chest tubes will be out We will continue to follow 09/26/2018 Patient doing well at this time Lungs are fully expanded with bilateral breath sounds Chest tube drainage still about 300 cc over 24 hours so we will leave chest tubes in place Patient has been transferred to the floor however 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 Likely will be able to pull the first chest tube out on Monday and the next one few days later 09/27/2018 Bilateral good breath sounds pulmonary full expansion We will remove the basal chest tube today Dressing has not been changed since I changed it after the surgery on Monday Chest tubes remain in good position despite lack of dressing and wound care 09/28/2018 Right lung fully expanded Basal chest tube has been removed yesterday and provided no surprises the last chest tube will be removed tomorrow Incision sites are clean and dry Pain regimen is well-tolerated with 09/29/2018 Right lung expanded Chest tube on waterseal with minimal drainage however still a tiny air leak on Valsalva Based on that the chest tube cannot be removed quite yet will probably have to stay to tomorrow or Monday They can be no air leak once the chest tube is removed Objective Vital Signs / I&O: Vital Signs 09/28/18 16:00 09/28/18 19:55 09/28/18 20:00 Temperature 99.1 F 98.5 F Pulse Rate 88 89 105 H Respiratory Rate 18 16 20 Blood Pressure 93/56 L 115/62 Pulse Oximetry 97 98 09/28/18 21:15 09/28/18 23:33 09/29/18 01:08 Temperature 98.8 F Pulse Rate 92 H Respiratory Rate 16 16 22 Blood Pressure 96/50 L Pulse Oximetry 95 09/29/18 04:00 09/29/18 05:00 09/29/18 08:00 Temperature 98.7 F 98.2 F Pulse Rate 85 76 Respiratory Rate 16 18 20 Blood Pressure 96/62 L 106/56 L Pulse Oximetry 94 L 96 09/29/18 08:18 Temperature Pulse Rate 76 Respiratory Rate 18 Blood Pressure Pulse Oximetry Intake & Output 09/28/18 09/29/18 09/29/18 18:59 06:59 18:59 Intake Total 1360 / 1360 Output Total Balance 1360 / 1360 -10 / -10 - Intake: Oral 1360 / 1360 Output: Urine Chest Tube Drainage Right Y Connected Other: # Voids 5 Date of Last Bowel Movement 09/27/18 # Bowel Movements 0 Impressions Chest X-Ray 09/28/18 00:00 CONCLUSION: 1 of 2 right thoracostomy tubes removed without complication.
[2018-09-29] MEDS: Tiotropium Bromide 18 MCG/ACT Inhaler INH SCH (12:02)
--- NOTE | 2018-09-29 14:08 | P.PNIM ---
Subjective Interval history: 43 yo w f admitted with recurrent pneumothorax pt seen doing better, tearful wants to go home, tube not coming out today bc not fully sealed today, pain is ok no nv Physical Exam Vital signs: Vital Signs 09/28/18 16:00 09/28/18 19:55 09/28/18 20:00 Temperature 99.1 F 98.5 F Pulse Rate 88 89 105 H Respiratory Rate 18 16 20 Blood Pressure 93/56 L 115/62 Pulse Oximetry 97 98 09/28/18 21:15 09/28/18 23:33 09/29/18 01:08 Temperature 98.8 F Pulse Rate 92 H Respiratory Rate 16 16 22 Blood Pressure 96/50 L Pulse Oximetry 95 09/29/18 04:00 09/29/18 05:00 09/29/18 08:00 Temperature 98.7 F 98.2 F Pulse Rate 85 76 Respiratory Rate 16 18 20 Blood Pressure 96/62 L 106/56 L Pulse Oximetry 94 L 96 09/29/18 08:18 09/29/18 11:45 09/29/18 12:25 Temperature 98.5 F Pulse Rate 76 86 80 Respiratory Rate 18 20 18 Blood Pressure 102/66 Pulse Oximetry 98 Intake & Output 09/28/18 09/29/18 09/29/18 18:59 06:59 18:59 Intake Total 1360 / 1360 Output Total Balance 1360 / 1360 -10 / -10 - Intake: Oral 1360 / 1360 Output: Urine Chest Tube Drainage Right Y Connected Other: # Voids 5 Date of Last Bowel Movement 09/27/18 09/27/18 # Bowel Movements 0 Narrative: Pleasant well-developed well-nourished 43-year-old white female Awake alert oriented no acute distress Heart S1-S2 regular Lungs right lung continue improved bs chest tube still in place good expansion left clear no wheeze clear Abdomen soft nondistended positive bowel sounds Extremities no clubbing cyanosis no significant edema Results Labs CBC & Chem 7: 09/24/18 05:54 09/24/18 05:54 Assessment and Plan (1) Emphysema of lung: Code(s): J43.9 - Emphysema, unspecified Status: Acute (2) Recurrent spontaneous pneumothorax: Code(s): J93.83 - Other pneumothorax Status: Acute (3) Tobacco abuse: Code(s): Z72.0 - Tobacco use Status: Acute (4) Constipation: Code(s): K59.00 - Constipation, unspecified Status: Acute 43-year-old female with a previous history of pneumothorax who presented to [facility] due to 3-day duration of shortness of breath. She was found to have significant pneumothorax and a chest tube was placed in the ED. Patient was subsequently transferred to the main hospital for further evaluation and treatment. ACUTE and RECURRENT PNEUMOTHORAX R LUNG s/p VATS/BLEB resection/PLEURODESIS POD# 2 - cont w ct, fu cts, pain control, oob as tolerated SEVERE EMPHYSEMA w BLEBS likely cause of recurrent pneumothorax work up for alpha 1 antitrypsin nml, fu w pulm add spiriva and albuterol, is encouraged, ct out 1-2 days when ok w ct sx. LLQ ABD PAIN - us neg, resolved CHRONIC TOBACCO ABUSE/NICOTINE ADDICTION-Continue nicotine patch 7 mg. -Patient is advised to quit smoking CONSTIPATION - bowel regimen, dvt prophylaxis - scd dispo - home when tubes out/stable.
[2018-09-29] MEDS: Zolpidem Tartrate 5 MG Tablet PO PRN (23:06)
[2018-09-30] MEDS: oxyCODONE/Acetaminophen 10/325 Tablet PO PRN ×3 (07:34→20:31)
[2018-09-30] MEDS: Famotidine 20 MG Tablet PO SCH ×3 (07:36→20:26)
[2018-09-30] MEDS: Senna/Docusate Sodium 8.6/50 MG Tablet PO SCH ×3 (07:36→20:26)
[2018-09-30] MEDS: Multivitamin/Minerals Therapeutic Tablet PO SCH ×2 (07:36→11:27)
--- NOTE | 2018-09-30 11:02 | P.PNIM ---
Subjective Interval history: s/p vats R chest w pleurodesis for recurrent pneumothorax w severe copd pt seen and exmained ,doing fair she is frustrated that still has air leak, and complaining of more pain today Physical Exam Vital signs: Vital Signs 09/29/18 11:45 09/29/18 12:25 09/29/18 16:25 Temperature 98.5 F 97.6 F Pulse Rate 86 80 93 H Respiratory Rate 20 18 20 Blood Pressure 102/66 93/62 L Pulse Oximetry 98 95 09/29/18 19:00 09/29/18 20:00 09/29/18 23:38 Temperature 97.6 F 98.5 F Pulse Rate 84 113 H 101 H Respiratory Rate 22 20 16 Blood Pressure 108/66 99/60 L Pulse Oximetry 96 95 09/30/18 04:00 09/30/18 08:00 09/30/18 08:23 Temperature 98.1 F 98.1 F Pulse Rate 75 93 H 96 H Respiratory Rate 14 24 18 Blood Pressure 105/57 L 100/63 Pulse Oximetry 97 96 Intake & Output 09/29/18 09/30/18 09/30/18 18:59 06:59 18:59 Intake Total 1200 / 1200 Output Total Balance - / - 1200 / 1200 Weight 78.8 kg Intake: Oral 1200 / 1200 Output: Urine Other: # Voids 3 Date of Last Bowel Movement 09/27/18 Narrative: Pleasant well-developed well-nourished 43-year-old white female Awake alert oriented no acute distress Heart S1-S2 regular Lungs right lung continue improved bs chest tube still left clear no wheeze clear, trace wheeze Abdomen soft nondistended positive bowel sounds Extremities no clubbing cyanosis no significant edema Results Labs CBC & Chem 7: 09/24/18 05:54 09/24/18 05:54 Assessment and Plan (1) Emphysema of lung: Code(s): J43.9 - Emphysema, unspecified Status: Acute (2) Recurrent spontaneous pneumothorax: Code(s): J93.83 - Other pneumothorax Status: Acute (3) Tobacco abuse: Code(s): Z72.0 - Tobacco use Status: Acute (4) Constipation: Code(s): K59.00 - Constipation, unspecified Status: Acute 43-year-old female with a previous history of pneumothorax who presented to [facility] due to 3-day duration of shortness of breath. She was found to have significant pneumothorax and a chest tube was placed in the ED. Patient was subsequently transferred to the main hospital for further evaluation and treatment. ACUTE and RECURRENT PNEUMOTHORAX R LUNG s/p VATS/BLEB resection/PLEURODESIS POD# 4 - cont w ct, fu cts, pain control, oob as tolerated persistant air leak, cont chest tube per ct, pain control SEVERE EMPHYSEMA w BLEBS likely cause of recurrent pneumothorax work up for alpha 1 antitrypsin nml, fu w pulm add spiriva and albuterol, is encouraged, LLQ ABD PAIN - us neg, resolved CHRONIC TOBACCO ABUSE/NICOTINE ADDICTION-Continue nicotine patch 7 mg. -Patient is advised to quit smoking CONSTIPATION - bowel regimen, dvt prophylaxis - scd dispo - home when tubes out/stable.
--- NOTE | 2018-09-30 11:16 | P.PNVS ---
Subjective Subjective/Hospital Course: 43-year-old female with recurrent right-sided pneumothorax, first episode being in April followed by the current one. Full consult has been dictated At this point I believe patient will be best served with thoracoscopy and bleb resection and pleurodesis Will take patient to the operating room tomorrow 09/25/2018 Patient is status post right thoracoscopy pleurodesis and resection of the pleural blebs from the right lower lobe and right upper lobe Lung is fully expanded and chest tube drainage is serosanguineous Patient can be transferred to the floor at this time Chest tubes will stay until the drainage decreases probably by the end of the week both chest tubes will be out We will continue to follow 09/26/2018 Patient doing well at this time Lungs are fully expanded with bilateral breath sounds Chest tube drainage still about 300 cc over 24 hours so we will leave chest tubes in place Patient has been transferred 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 will be able to pull the first chest tube out on Monday and the next one few days later 09/27/2018 Bilateral good breath sounds pulmonary full expansion We will remove the basal chest tube today Dressing has not been changed since I changed it after the surgery on Monday Chest tubes remain in good position despite lack of dressing and wound care 09/28/2018 Right lung fully expanded Basal chest tube has been removed yesterday and provided no surprises the last chest tube will be removed tomorrow Incision sites are clean and dry Pain regimen is well-tolerated with 09/29/2018 Right lung expanded Chest tube on waterseal with minimal drainage however still a tiny air leak on Valsalva Based on that the chest tube cannot be removed quite yet will probably have to stay to tomorrow or Monday They can be no air leak once the chest tube is removed 09/30/2018 Lungs are fully expanded and I examined the chest wall The site of the second chest tube has closed off and port sites are clean and dry Patient still has a very tiny leak and a second chest tube on Valsalva and therefore chest tube can be removed quite yet There are several ways to mitigate this and obviously the first 1 is to wait the leak resolves. If the leak does not resolve in the next few days we can always replace the chest tube with a small pigtail catheter and sent patient home with the same and in the most advanced circumstances we can inject chest tube with some doxycycline glucose mix to further sclerose the chest For the time being I would leave the chest tube in this should resolve the next few days Objective Vital Signs / I&O: Vital Signs 09/29/18 11:45 09/29/18 12:25 09/29/18 16:25 Temperature 98.5 F 97.6 F Pulse Rate 86 80 93 H Respiratory Rate 20 18 20 Blood Pressure 102/66 93/62 L Pulse Oximetry 98 95 09/29/18 19:00 09/29/18 20:00 09/29/18 23:38 Temperature 97.6 F 98.5 F Pulse Rate 84 113 H 101 H Respiratory Rate 22 20 16 Blood Pressure 108/66 99/60 L Pulse Oximetry 96 95 09/30/18 04:00 09/30/18 08:00 09/30/18 08:23 Temperature 98.1 F 98.1 F Pulse Rate 75 93 H 96 H Respiratory Rate 14 24 18 Blood Pressure 105/57 L 100/63 Pulse Oximetry 97 96 Intake & Output 09/29/18 09/30/18 09/30/18 18:59 06:59 18:59 Intake Total 1200 / 1200 Output Total Balance - / -1 1200 / 1200 Weight 78.8 kg Intake: Oral 1200 / 1200 Output: Urine Other: # Voids 3 Date of Last Bowel Movement 09/27/18
[2018-09-30] MEDS: Benzonatate 100 MG Capsule PO SCH ×2 (11:22→20:26)
[2018-09-30] MEDS: Ketorolac Inj 30 MG/ML (IVP) Vial IV.PUSH PRN (11:22)
[2018-09-30] MEDS: Tiotropium Bromide 18 MCG/ACT Inhaler INH SCH (11:23)
[2018-09-30] MEDS: Acetaminophen 325 MG Tablet PO PRN (16:18)
[2018-09-30] MEDS: Zolpidem Tartrate 5 MG Tablet PO PRN (23:30)
[2018-10-01] MEDS: Ketorolac Inj 30 MG/ML (IVP) Vial IV.PUSH PRN ×3 (02:02→16:23)
[2018-10-01] MEDS: oxyCODONE/Acetaminophen 10/325 Tablet PO PRN ×4 (02:02→20:35)
[2018-10-01] MEDS: Benzonatate 100 MG Capsule PO SCH ×3 (03:50→20:32)
[2018-10-01] MEDS: Tiotropium Bromide 18 MCG/ACT Inhaler INH SCH (08:16)
[2018-10-01] MEDS: Multivitamin/Minerals Therapeutic Tablet PO SCH (08:16)
[2018-10-01] MEDS: Famotidine 20 MG Tablet PO SCH ×2 (08:16→20:32)
[2018-10-01] MEDS: Senna/Docusate Sodium 8.6/50 MG Tablet PO SCH ×2 (08:16→23:20)
--- NOTE | 2018-10-01 17:43 | P.PNVS ---
Subjective Subjective/Hospital Course: 43-year-old female with recurrent right-sided pneumothorax, first episode being in April followed by the current one. Full consult has been dictated At this point I believe patient will be best served with thoracoscopy and bleb resection and pleurodesis Will take patient to the operating room tomorrow 09/25/2018 Patient is status post right thoracoscopy pleurodesis and resection of the pleural blebs from the right lower lobe and right upper lobe Lung is fully expanded and chest tube drainage is serosanguineous Patient can be transferred to the floor at this time Chest tubes will stay until the drainage decreases probably by the end of the week both chest tubes will be out We will continue to follow 09/26/2018 Patient doing well at this time Lungs are fully expanded with bilateral breath sounds Chest tube drainage still about 300 cc over 24 hours so we will leave chest tubes in place Patient has been transferred to the 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 will be able to pull the first chest tube out on Monday and the next one few days later 09/27/2018 Bilateral good breath sounds pulmonary full expansion We will remove the basal chest tube today Dressing has not been changed since I changed it after the surgery on Monday Chest tubes remain in good position despite lack of dressing and wound care 09/28/2018 Right lung fully expanded Basal chest tube has been removed yesterday and provided no surprises the last chest tube will be removed tomorrow Incision sites are clean and dry Pain regimen is well-tolerated with 09/29/2018 Right lung expanded Chest tube on waterseal with minimal drainage however still a tiny air leak on Valsalva Based on that the chest tube cannot be removed quite yet will probably have to stay to tomorrow or Monday They can be no air leak once the chest tube is removed 09/30/2018 Lungs are fully expanded and I examined the chest wall The site of the second chest tube has closed off and port sites are clean and dry Patient still has a very tiny leak and a second chest tube on Valsalva and therefore chest tube can be removed quite yet There are several ways to mitigate this and obviously the first 1 is to wait the leak resolves. If the leak does not resolve in the next few days we can always replace the chest tube with a small pigtail catheter and sent patient home with the same and in the most advanced circumstances we can inject chest tube with some doxycycline glucose mix to further sclerose the chest For the time being I would leave the chest tube in this should resolve the next few days 10/01/2018 Patient doing well Very tiny chest tube airleak only on Valsalva We will keep chest tube in place for another day at least Nothing to add to care Objective Vital Signs / I&O: Vital Signs 09/30/18 18:30 09/30/18 20:00 09/30/18 20:29 Temperature 100.3 F H 100.7 F H Pulse Rate 76 112 H Respiratory Rate 16 24 Blood Pressure 104/62 Pulse Oximetry 94 L 09/30/18 20:56 09/30/18 23:43 10/01/18 00:00 Temperature 99.7 F H Pulse Rate 117 H Respiratory Rate 16 18 16 Blood Pressure 104/57 L Pulse Oximetry 93 L 10/01/18 02:27 10/01/18 03:49 10/01/18 04:00 Temperature 98.9 F Pulse Rate 110 H Respiratory Rate 16 18 18 Blood Pressure 98/55 L Pulse Oximetry 94 L 10/01/18 07:00 10/01/18 08:00 10/01/18 12:00 Temperature 98.7 F 98.7 F Pulse Rate 103 H 105 H 107 H Respiratory Rate 14 18 18 Blood Pressure 101/63 101/64 Pulse Oximetry 95 95 10/01/18 13:17 10/01/18 16:00 Temperature 98.3 F Pulse Rate 100 H 115 H Respiratory Rate 18 18 Blood Pressure 101/60 Pulse Oximetry 96 Intake & Output 09/30/18 10/01/18 10/01/18 18:59 06:59 18:59 Intake Total 1000 / 1000 240 / 240 Output Total 1250 / 1250 Balance 1000 / 1000 -1010 / -1010 Weight 76.9 kg Intake: Oral 1000 / 1000 240 / 240 Output: Urine 1250 / 1250 Other: # Voids 1 Date of Last Bowel Movement 09/27/18 09/29/18 09/29/18
--- NOTE | 2018-10-01 18:19 | P.PNIM ---
Subjective Interval history: 43-year-old female admitted with recurrent right-sided pneumothorax, had chest tube placement, and subsequently seen by surgery and taken for VATS with pleurodesis, chest tubes have been managed by surgery, now with persistent air leak Patient seen and evaluated, doing a little better, pain is improved, with IV Toradol, denies nausea vomiting, no headache, breathing easier Physical Exam Vital signs: Vital Signs 09/30/18 18:30 09/30/18 20:00 09/30/18 20:29 Temperature 100.3 F H 100.7 F H Pulse Rate 76 112 H Respiratory Rate 16 24 Blood Pressure 104/62 Pulse Oximetry 94 L 09/30/18 20:56 09/30/18 23:43 10/01/18 00:00 Temperature 99.7 F H Pulse Rate 117 H Respiratory Rate 16 18 16 Blood Pressure 104/57 L Pulse Oximetry 93 L 10/01/18 02:27 10/01/18 03:49 10/01/18 04:00 Temperature 98.9 F Pulse Rate 110 H Respiratory Rate 16 18 18 Blood Pressure 98/55 L Pulse Oximetry 94 L 10/01/18 07:00 10/01/18 08:00 10/01/18 12:00 Temperature 98.7 F 98.7 F Pulse Rate 103 H 105 H 107 H Respiratory Rate 14 18 18 Blood Pressure 101/63 101/64 Pulse Oximetry 95 95 10/01/18 13:17 10/01/18 16:00 Temperature 98.3 F Pulse Rate 100 H 115 H Respiratory Rate 18 18 Blood Pressure 101/60 Pulse Oximetry 96 Intake & Output 09/30/18 10/01/18 10/01/18 18:59 06:59 18:59 Intake Total 1000 / 1000 240 / 240 Output Total 1250 / 1250 Balance 1000 / 1000 -1010 / -1010 Weight 76.9 kg Intake: Oral 1000 / 1000 240 / 240 Output: Urine 1250 / 1250 Other: # Voids 1 Date of Last Bowel Movement 09/27/18 09/29/18 09/29/18 Narrative: Well-developed well-nourished 43-year-old white female Awake alert oriented no acute distress Heart S1-S2 regular Lungs right chest tube in place, diminished air sounds, left lungs clear Abdomen soft nondistended positive bowel sounds Extremities no clubbing cyanosis noted no edema Results Labs CBC & Chem 7: 09/24/18 05:54 09/24/18 05:54 Assessment and Plan (1) Emphysema of lung: Code(s): J43.9 - Emphysema, unspecified Status: Acute (2) Recurrent spontaneous pneumothorax: Code(s): J93.83 - Other pneumothorax Status: Acute (3) Tobacco abuse: Code(s): Z72.0 - Tobacco use Status: Acute (4) Constipation: Code(s): K59.00 - Constipation, unspecified Status: Acute 43-year-old female with a previous history of pneumothorax who presented to [facility] due to 3-day duration of shortness of breath. She was found to have significant pneumothorax and a chest tube was placed in the ED. Patient was subsequently transferred to the main hospital for further evaluation and treatment. ACUTE and RECURRENT PNEUMOTHORAX R LUNG s/p VATS/BLEB resection/PLEURODESIS POD# 5 - cont w ct, fu cts, pain control, oob as tolerated persistant air leak, cont chest tube per cts, pain control SEVERE EMPHYSEMA w BLEBS likely cause of recurrent pneumothorax work up for alpha 1 antitrypsin nml, fu w pulm, add spiriva and albuterol, is encouraged, stop smoking LLQ ABD PAIN - us neg, resolved CHRONIC TOBACCO ABUSE/NICOTINE ADDICTION-Continue nicotine patch 7 mg. -Patient is advised to quit smoking CONSTIPATION - bowel regimen, dvt prophylaxis - scd, out of bed dispo - home when tubes out/stable.
[2018-10-01] MEDS: Acetaminophen 325 MG Tablet PO PRN (20:32)
[2018-10-02] MEDS: oxyCODONE/Acetaminophen 10/325 Tablet PO PRN ×5 (00:53→23:40)
[2018-10-02] MEDS: Zolpidem Tartrate 5 MG Tablet PO PRN ×2 (00:53→22:12)
[2018-10-02] MEDS: Benzonatate 100 MG Capsule PO SCH ×3 (04:29→22:11)
[2018-10-02] MEDS: Ketorolac Inj 30 MG/ML (IVP) Vial IV.PUSH PRN ×2 (09:54→19:17)
[2018-10-02] MEDS: Senna/Docusate Sodium 8.6/50 MG Tablet PO SCH ×2 (09:55→22:12)
[2018-10-02] MEDS: Famotidine 20 MG Tablet PO SCH ×2 (09:55→22:11)
[2018-10-02] MEDS: Multivitamin/Minerals Therapeutic Tablet PO SCH (09:55)
--- NOTE | 2018-10-02 14:08 | P.PNIM ---
Subjective Interval history: Follow-up for recurrent pneumothorax. Patient is currently resting in bed. Denies any chest pain or shortness of breath. However she complains of fever and chills. She has had low-grade fevers T-max 100.8 F. Physical Exam Vital signs: Vital Signs 10/01/18 16:00 10/01/18 20:00 10/01/18 20:03 Temperature 98.3 F 100.1 F H Pulse Rate 115 H 120 H 118 H Respiratory Rate 18 18 20 Blood Pressure 101/60 111/66 Pulse Oximetry 96 94 L 10/02/18 00:00 10/02/18 04:00 10/02/18 08:00 Temperature 99.3 F 98.6 F 100.8 F H Pulse Rate 110 H 120 H 72 Respiratory Rate 17 18 18 Blood Pressure 113/57 L 114/62 103/55 L Pulse Oximetry 93 L 95 94 L 10/02/18 08:49 10/02/18 12:00 10/02/18 13:00 Temperature 98.5 F Pulse Rate 110 H 100 H 97 H Respiratory Rate 17 18 14 Blood Pressure 94/64 L Pulse Oximetry 95 Intake & Output 10/01/18 10/02/18 10/02/18 18:59 06:59 18:59 Intake Total 850 / 850 Output Total 75 / 75 Balance 775 / 775 Weight 76.8 kg Intake: Oral 850 / 850 Output: Wound Drainage 75 / 75 # 2 Right Lateral Chest 75 / 75 Other: # Voids 4 4 Date of Last Bowel Movement 09/29/18 09/29/18 Narrative: Well-developed well-nourished 43-year-old white female Awake alert oriented no acute distress Heart S1-S2 regular Lungs right chest tube in place, diminished air sounds, left lungs clear Abdomen soft nondistended positive bowel sounds Extremities no clubbing cyanosis noted no edema Results Labs CBC & Chem 7: 10/02/18 19:32 10/02/18 19:32 Imaging Imaging: Chest X-Ray 09/20/18 00:00 CONCLUSION: Right-sided chest tube remains in place. No evidence of pneumothorax. Chest CT 09/20/18 09:33 CONCLUSION: 1. Mild paraseptal emphysema bilaterally. 2. Right-sided chest tube in place. 3. No evidence of pneumothorax. Pelvis Ultrasound 09/21/18 00:00 CONCLUSION: 1. IUD in the uterus. 2. Ovaries within normal limits. Chest X-Ray 09/22/18 00:00 CONCLUSION: Right chest tube without pneumothorax. Chest X-Ray 09/24/18 00:00 CONCLUSION: 2 large bore chest tubes in place on the right without pneumothorax Chest X-Ray 09/28/18 00:00 CONCLUSION: 1 of 2 right thoracostomy tubes removed without complication. Assessment and Plan (1) Emphysema of lung: Code(s): J43.9 - Emphysema, unspecified Status: Acute (2) Recurrent spontaneous pneumothorax: Code(s): J93.83 - Other pneumothorax Status: Acute (3) Tobacco abuse: Code(s): Z72.0 - Tobacco use Status: Acute (4) Constipation: Code(s): K59.00 - Constipation, unspecified Status: Acute Plan 43-year-old female with a previous history of pneumothorax who presented to [facility] due to 3-day duration of shortness of breath. She was found to have significant pneumothorax and a chest tube was placed in the ED. Patient was subsequently transferred to the [facility] hospital for further evaluation and treatment. Acute pneumothorax right-sided, recurrent History of recurrent pneumothorax, first time was April 2018 CT with findings of emphysema -Continue with right lateral chest tube, now at water seal -Continue with Percocet, Toradol for pain management. Chest x-ray results noted -Dr. Lundberg is following. Possible chest tube removal today 10/02/2018. Low grade fever Likely due to atelectasis. We will obtain BMP and CBC today. Left lower quadrant abdominal pain -Ultrasound was negative, IUD in place, ovaries within normal limits -Appears to have resolved Emphysema COPD -add Duonebs q 8 and PRN, continue Spiriva -Tessalon perles 100 mg po q 8 prn cough Tobacco abuse -Continue nicotine patch 7 mg. -Patient is advised to quit smoking -Patient is motivated, she is planning to talk to her PCP about possibly using Chantix Full code. SCDs
[2018-10-02] MEDS: Tiotropium Bromide 18 MCG/ACT Inhaler INH SCH (14:09)
--- NOTE | 2018-10-02 18:09 | XR ---
EXAM DATE: 10/02/2018 6:01 PM EST AGE/SEX: 43 years / Female INDICATIONS: Evaluate for right side chest tube placement. CLINICAL DATA: This is the patient's initial encounter. Patient reports that signs and symptoms have been present for 1 day and indicates a pain score of 8/10. MEDICAL/SURGICAL HISTORY: None. None. COMPARISON: [facility] [place] 1[place]LE AP, 09/28/2018. . FINDINGS: A single AP view of the chest demonstrates right-sided chest tube. Pleural parenchymal density right lung. Small right lateral pneumothorax. Left lung clear. The cardiomediastinal contours are unremarka ble. Osseous structures are intact. CONCLUSION: Right-sided chest tube with small right lateral pneumothorax. Electronically signed by: Hardik Mathew MD Board Certified Radiologist 10/02/2018 6:08 PM EST
--- NOTE | 2018-10-02 18:40 | P.PNVS ---
Subjective Subjective/Hospital Course: 43-year-old female with recurrent right-sided pneumothorax, first episode being in April followed by the current one. Full consult has been dictated At this point I believe patient will be best served with thoracoscopy and bleb resection and pleurodesis Will take patient to the operating room tomorrow 09/25/2018 Patient is status post right thoracoscopy pleurodesis and resection of the pleural blebs from the right lower lobe and right upper lobe Lung is fully expanded and chest tube drainage is serosanguineous Patient can be transferred to the floor at this time Chest tubes will stay until the drainage decreases probably by the end of the week both chest tubes will be out We will continue to follow 09/26/2018 Patient doing well at this time Lungs are fully expanded with bilateral breath sounds Chest tube drainage still about 300 cc over 24 hours so we will leave chest tubes in place Patient has been transferred to the floor however 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 Likely will be able to pull the first chest tube out on Monday and the next one few days later 09/27/2018 Bilateral good breath sounds pulmonary full expansion We will remove the basal chest tube today Dressing has not been changed since I changed it after the surgery on Monday Chest tubes remain in good position despite lack of dressing and wound care 09/28/2018 Right lung fully expanded Basal chest tube has been removed yesterday and provided no surprises the last chest tube will be removed tomorrow Incision sites are clean and dry Pain regimen is well-tolerated with 09/29/2018 Right lung expanded Chest tube on waterseal with minimal drainage however still a tiny air leak on Valsalva Based on that the chest tube cannot be removed quite yet will probably have to stay to tomorrow or Monday They can be no air leak once the chest tube is removed 09/30/2018 Lungs are fully expanded and I examined the chest wall The site of the second chest tube has closed off and port sites are clean and dry Patient still has a very tiny leak and a second chest tube on Valsalva and therefore chest tube can be removed quite yet There are several ways to mitigate this and obviously the first 1 is to wait the leak resolves. If the leak does not resolve in the next few days we can always replace the chest tube with a small pigtail catheter and sent patient home with the same and in the most advanced circumstances we can inject chest tube with some doxycycline glucose mix to further sclerose the chest For the time being I would leave the chest tube in this should resolve the next few days 10/01/2018 Patient doing well Very tiny chest tube airleak only on Valsalva We will keep chest tube in place for another day at least Nothing to add to care 10/02/2018 Patient doing very well Small air leak is disappeared I clamp the chest tube today and repeat chest x-ray does not reveal any leak Will remove chest tube today or early as tomorrow morning from not inhabitant removing chest tubes late at night to prevent unrecognized pneumothorax to develop Once the chest tube is removed tomorrow follow-up x-ray will be performed about 4 hours later and if okay patient will be able to discharge Objective Vital Signs / I&O: Vital Signs 10/01/18 20:00 10/01/18 20:03 10/02/18 00:00 Temperature 100.1 F H 99.3 F Pulse Rate 120 H 118 H 110 H Respiratory Rate 18 20 17 Blood Pressure 111/66 113/57 L Pulse Oximetry 94 L 93 L 10/02/18 04:00 10/02/18 08:00 10/02/18 08:49 Temperature 98.6 F 100.8 F H Pulse Rate 120 H 72 110 H Respiratory Rate 18 18 17 Blood Pressure 114/62 103/55 L Pulse Oximetry 95 94 L 10/02/18 12:00 10/02/18 13:00 10/02/18 16:00 Temperature 98.5 F 98.5 F Pulse Rate 100 H 97 H 73 Respiratory Rate 18 14 18 Blood Pressure 94/64 L 96/61 L Pulse Oximetry 95 95 Intake & Output 10/01/18 10/02/18 10/02/18 18:59 06:59 18:59 Intake Total 850 / 850 1480 / 1480 Output Total 75 / 75 0 / 0 Balance 775 / 775 1480 / 1480 Weight 76.8 kg Intake: Oral 850 / 850 1480 / 1480 Output: Wound Drainage 75 / 75 0 / 0 # 2 Right Lateral Chest 75 / 75 0 / 0 Other: # Voids 4 4 5 Date of Last Bowel Movement 09/29/18 09/29/18 09/29/18 # Bowel Movements 2 Impressions Chest X-Ray 10/02/18 17:25 CONCLUSION: Right-sided chest tube with small right lateral pneumothorax.
[2018-10-02 19:59] LABS: Baso # (Auto) 0.1 th/mm3 (0.0-0.2); Baso % (Auto) 0.6 % (0.0-2.0); Eos # (Auto) 0.4 th/mm3 (0.0-0.4); Eos % (Auto) 2.6 % (0.0-4.0); Hemoglobin 9.4 gm/dL (11.6-15.3); Lymph # (Auto) 0.5 th/mm3 (1.0-4.8); Lymph % (Auto) 3.4 % (9.0-44.0); Mean Corpuscular HGB Conc 32.4 % (32.0-36.0); Mean Corpuscular Hemoglobin 27.4 pg (27.0-34.0); Mean Corpuscular Volume 84.6 fL (80.0-100.0); Mean Platelet Volume 8.7 fL (7.0-11.0); Mono # (Auto) 0.8 th/mm3 (0.0-0.9); Mono % (Auto) 5.5 % (0.0-8.0); Neut # (Auto) 12.3 th/mm3 (1.8-7.7); Neut % (Auto) 87.9 % (16.0-70.0); Platelet Count 460 th/mm3 (150-450); Red Blood Count 3.42 mil/mm3 (4.00-5.30); Red Cell Distribution Width 15.6 % (11.6-17.2)
[2018-10-02 20:15] LABS: Calcium 8.6 mg/dL (8.5-10.1); Carbon Dioxide 24.9 meq/L (21.0-32.0); Potassium 3.4 meq/L (3.5-5.1)
[2018-10-03] MEDS: Benzonatate 100 MG Capsule PO SCH ×3 (04:27→19:57)
[2018-10-03] MEDS: Ketorolac Inj 30 MG/ML (IVP) Vial IV.PUSH PRN ×3 (04:27→19:39)
[2018-10-03] MEDS: oxyCODONE/Acetaminophen 10/325 Tablet PO PRN ×4 (04:28→18:26)
[2018-10-03] MEDS: Multivitamin/Minerals Therapeutic Tablet PO SCH (08:45)
[2018-10-03] MEDS: Famotidine 20 MG Tablet PO SCH ×2 (08:46→20:00)
[2018-10-03] MEDS: Senna/Docusate Sodium 8.6/50 MG Tablet PO SCH ×2 (08:46→20:00)
[2018-10-03] MEDS: Tiotropium Bromide 18 MCG/ACT Inhaler INH SCH (08:47)
--- NOTE | 2018-10-03 17:34 | P.PNVS ---
Subjective Subjective/Hospital Course: 43-year-old female with recurrent right-sided pneumothorax, first episode being in April followed by the current one. Full consult has been dictated At this point I believe patient will be best served with thoracoscopy and bleb resection and pleurodesis Will take patient to the operating room tomorrow 09/25/2018 Patient is status post right thoracoscopy pleurodesis and resection of the pleural blebs from the right lower lobe and right upper lobe Lung is fully expanded and chest tube drainage is serosanguineous Patient can be transferred to the floor at this time Chest tubes will stay until the drainage decreases probably by the end of the week both chest tubes will be out We will continue to follow 09/26/2018 Patient doing well at this time Lungs are fully expanded with bilateral breath sounds Chest tube drainage still about 300 cc over 24 hours so we will leave chest tubes in place Patient has been transferred to the floor however 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 Likely will be able to pull the first chest tube out on Monday and the next one few days later 09/27/2018 Bilateral good breath sounds pulmonary full expansion We will remove the basal chest tube today Dressing has not been changed since I changed it after the surgery on Monday Chest tubes remain in good position despite lack of dressing and wound care 09/28/2018 Right lung fully expanded Basal chest tube has been removed yesterday and provided no surprises the last chest tube will be removed tomorrow Incision sites are clean and dry Pain regimen is well-tolerated with 09/29/2018 Right lung expanded Chest tube on waterseal with minimal drainage however still a tiny air leak on Valsalva Based on that the chest tube cannot be removed quite yet will probably have to stay to tomorrow or Monday They can be no air leak once the chest tube is removed 09/30/2018 Lungs are fully expanded and I examined the chest wall The site of the second chest tube has closed off and port sites are clean and dry Patient still has a very tiny leak and a second chest tube on Valsalva and therefore chest tube can be removed quite yet There are several ways to mitigate this and obviously the first 1 is to wait the leak resolves. If the leak does not resolve in the next few days we can always replace the chest tube with a small pigtail catheter and sent patient home with the same and in the most advanced circumstances we can inject chest tube with some doxycycline glucose mix to further sclerose the chest For the time being I would leave the chest tube in this should resolve the next few days 10/01/2018 Patient doing well Very tiny chest tube airleak only on Valsalva We will keep chest tube in place for another day at least Nothing to add to care 10/02/2018 Patient doing very well Small air leak is disappeared I clamp the chest tube today and repeat chest x-ray does not reveal any leak Will remove chest tube today or early as tomorrow morning from not inhabitant removing chest tubes late at night to prevent unrecognized pneumothorax to develop Once the chest tube is removed tomorrow follow-up x-ray will be performed about 4 hours later and if okay patient will be able to discharge 10/03/2018 Lungs fully expanded there is no air leak Chest tube removed Chest x-ray reveals expanded lung on the follow-up film patient can be discharged from my point today Follow-up with my office in 2-3 weeks and as needed Objective Vital Signs / I&O: Vital Signs 10/02/18 19:57 10/02/18 20:26 10/02/18 23:57 Temperature 100.2 F H 98.8 F Pulse Rate 82 112 H 98 H Respiratory Rate 20 20 18 Blood Pressure 110/62 89/56 L Pulse Oximetry 96 95 10/03/18 04:00 10/03/18 08:00 10/03/18 09:15 Temperature 99.0 F 98.1 F Pulse Rate 99 H 99 H Respiratory Rate 16 18 16 Blood Pressure 91/61 L 99/59 L Pulse Oximetry 95 97 10/03/18 11:15 10/03/18 12:00 Temperature 98.4 F Pulse Rate 107 H Respiratory Rate 20 18 Blood Pressure 97/57 L Pulse Oximetry 97 Intake & Output 10/02/18 10/03/18 10/03/18 18:59 06:59 18:59 Intake Total 1480 / 1480 Output Total 0 / 0 0 / 0 Balance 1480 / 1480 0 / 0 Weight 78.6 kg Intake: Oral 1480 / 1480 Output: Wound Drainage 0 / 0 0 / 0 # 2 Right Lateral Chest 0 / 0 0 / 0 Other: # Voids 5 2 Date of Last Bowel Movement 09/29/18 10/02/18 10/02/18 # Bowel Movements 2 Laboratory Results - last 24 hr 10/02/18 10/02/18 19:32 19:32 WBC 14.0 H RBC 3.42 L Hgb 9.4 L Hct 29.0 L MCV 84.6 MCH 27.4 MCHC 32.4 RDW 15.6 Plt Count 460 H D MPV 8.7 Neut % (Auto) 87.9 H Lymph % (Auto) 3.4 L Winn % (Auto) 5.5 Eos % (Auto) 2.6 Baso % (Auto) 0.6 Neut # (Auto) 12.3 H Lymph # (Auto) 0.5 L Winn # (Auto) 0.8 Eos # (Auto) 0.4 Baso # (Auto) 0.1 WBC Differential . Differential Comment Auto diff final Sodium 136 Potassium 3.4 L Chloride 100 Carbon Dioxide 24.9 Anion Gap 11 BUN 11 Creatinine 1.06 H Estimated GFR 56 L Random Glucose 127 H Calcium 8.6 Impressions Chest X-Ray 10/02/18 17:25 CONCLUSION: Right-sided chest tube with small right lateral pneumothorax.
--- NOTE | 2018-10-03 18:02 | XR ---
EXAM DATE: 10/03/2018 5:56 PM EST AGE/SEX: 43 years / Female INDICATIONS: Post chest tube removal. CLINICAL DATA: This is the patient's subsequent encounter. Patient reports that signs and symptoms h ave been present for 1 week and indicates a pain score of 0/10. MEDICAL/SURGICAL HISTORY: None. None. [place] [facility] [place]. . FINDINGS: A single AP view of the chest demonstrates interval recurrence of a small pneumothorax on the right. The largest component is subpulmonic in nature. The visceral pleura is 1 cm from the parietal pleura. A small component of fluid is seen on the right. The right chest tube is been removed. Left lung is clear. Heart is normal in size. No mediastinal shift. A mild scoliotic curvature to the spine. CONCLUSION: Recurrent small pneumothorax on the right following chest tube removal. Tiny right effusion. Electronically signed by: Roldan Aldana MD Board Certified Radiologist 10/03/2018 6:01 PM EST
[2018-10-03] MEDS: Zolpidem Tartrate 5 MG Tablet PO PRN (22:24)
--- NOTE | 2018-10-03 22:53 | P.PNIM ---
Subjective Interval history: Follow-up for recurrent pneumothorax. Patient was seen earlier in the afternoon. Doing well. No fever, chills. On room air. She denies any cough, dysuria, hematuria. She does states that her urine is somewhat darker. Physical Exam Vital signs: Vital Signs 10/02/18 23:57 10/03/18 04:00 10/03/18 08:00 Temperature 98.8 F 99.0 F 98.1 F Pulse Rate 98 H 99 H 99 H Respiratory Rate 18 16 18 Blood Pressure 89/56 L 91/61 L 99/59 L Pulse Oximetry 95 95 97 10/03/18 09:15 10/03/18 11:15 10/03/18 12:00 Temperature 98.4 F Pulse Rate 107 H Respiratory Rate 16 20 18 Blood Pressure 97/57 L Pulse Oximetry 97 10/03/18 13:55 10/03/18 16:00 10/03/18 20:00 Temperature 98.4 F 98.5 F Pulse Rate 106 H 98 H Respiratory Rate 18 18 18 Blood Pressure 108/73 97/54 L Pulse Oximetry 97 94 L Intake & Output 10/03/18 10/03/18 10/04/18 06:59 18:59 06:59 Output Total 0 / 0 Balance 0 / 0 Weight 78.6 kg Output: Wound Drainage 0 / 0 # 2 Right Lateral Chest 0 / 0 Other: # Voids 2 4 Date of Last Bowel Movement 10/02/18 10/02/18 Narrative: GENERAL: Alert, NAD. SKIN: Warm and dry. HEAD: Normocephalic. EYES: No scleral icterus. No injection or drainage. NECK: Supple, trachea midline. No JVD or lymphadenopathy. CARDIOVASCULAR: Regular rate and rhythm without murmurs, gallops, or rubs. RESPIRATORY: Breath sounds equal bilaterally. No accessory muscle use. Right sided Chest tube in place which was later removed. GASTROINTESTINAL: Abdomen soft, non-tender, nondistended. MUSCULOSKELETAL: No cyanosis, or edema. BACK: Nontender without obvious deformity. No CVA tenderness. Results Labs CBC & Chem 7: 10/02/18 19:32 10/02/18 19:32 Imaging Imaging: Impressions Chest X-Ray 10/03/18 17:32 CONCLUSION: Recurrent small pneumothorax on the right following chest tube removal. Tiny right effusion. Assessment and Plan (1) Emphysema of lung: Code(s): J43.9 - Emphysema, unspecified Status: Acute (2) Recurrent spontaneous pneumothorax: Code(s): J93.83 - Other pneumothorax Status: Acute (3) Tobacco abuse: Code(s): Z72.0 - Tobacco use Status: Acute (4) Constipation: Code(s): K59.00 - Constipation, unspecified Status: Acute Plan 43-year-old female with a previous history of pneumothorax who presented to [facility] due to 3-day duration of shortness of breath. She was found to have significant pneumothorax and a chest tube was placed in the ED. Patient was subsequently transferred to the main hospital for further evaluation and treatment. Acute pneumothorax right-sided, recurrent History of recurrent pneumothorax, first time was April 2018 CT with findings of emphysema -Continue with Percocet, Toradol for pain management. Chest x-ray shows tiny right sided pneumothorax after Chest tube removal. -Dr. Lundberg is following and removed chest tube today 10/03/2018. Low grade fever on 10/02/2018. Likely due to atelectasis. CBC shows WBC 14K which is possibly reactive. No further fever. Continue to use Incentive spirometer. -Will check UA. Left lower quadrant abdominal pain -Ultrasound was negative, IUD in place, ovaries within normal limits -Appears to have resolved Emphysema COPD -add Duonebs q 8 and PRN, continue Spiriva -Tessalon perles 100 mg po q 8 prn cough Tobacco abuse -Continue nicotine patch 7 mg. -Patient is advised to quit smoking -Patient is motivated, she is planning to talk to her PCP about possibly using Chantix Full code. SCDs Patient is cleared by Dr. Lundberg for discharge. She can be discharged in the AM if she remains hemodynamically stable.
[2018-10-04] MEDS: oxyCODONE/Acetaminophen 10/325 Tablet PO PRN ×2 (03:23→09:22)
[2018-10-04] MEDS: Benzonatate 100 MG Capsule PO SCH (03:23)
[2018-10-04 03:57] VITALS: PULSE 90; TEMP 98.1; O2SAT 96
[2018-10-04] MEDS: Ketorolac Inj 30 MG/ML (IVP) Vial IV.PUSH PRN ×2 (04:53→09:23)
[2018-10-04 09:17] VITALS: BP 104/64; RESP 18
[2018-10-04] MEDS: Senna/Docusate Sodium 8.6/50 MG Tablet PO SCH (09:23)
[2018-10-04] MEDS: Famotidine 20 MG Tablet PO SCH (09:23)
[2018-10-04] MEDS: Multivitamin/Minerals Therapeutic Tablet PO SCH (09:23)
--- NOTE | 2018-10-04 22:01 | P.DS ---
DS: Providers Date of admission: 09/20/18 01:40 Primary care physician: No Primary Care Physician Consults: 09/20/18 08:58 Consult to General Surgery Routine Consulting Provider: Jaime Booth Drum Carrier:: Jaime Booth Reason for Consultation: Discussed with Dr. Booth regarding pneumonthorax Notified:: Physician Spoke with:: Dr Booth Date Notified:: 09/20/18 Time Notified:: 09:04 Ordering Provider: CARLEY 09/22/18 11:45 Consult to Pulmonology Routine Consulting Provider: Cal Ballard V Reason for Consultation: 43F with two right pneumothorax occurrences in the last 6 months. She has early emphysema on CT Chest. Lung has been re inflated with chest tube which will be out soon. She needs advice or intervention regarding prevention of future collapses. Notified:: Service Spoke with:: Augusto Date Notified:: 09/22/18 Time Notified:: 11:52 Ordering Provider: JOSLYN Troy History from admission: Ms. Rand is a 43 year old female with a history of prior pneuothorax (PTX) who presented to [facility] ER with shortness of breath that started 3 days prior to this admission. CXR showed a large PTX and subsequently chest tube was placed and patient was transferred to [facility]. At the time of this interview, patient denies any chest pain, shortness of breath, fever or chills. She denies any abdominal pain, cough. No changes in bowel or bladder habits. Patient is currently doing well. On room air. Chest tube is on suction [id number]. I have discussed with Dr. Booth who has agreed to see patient and manage chest tube. Repeat CXR shows no PTX. Past medical history: Pneumothorax in April 2018. Past surgical history: No significant surgical history. Social history: Patient smokes half a pack a day. Drinks socially. No illicit drug use. Family history: Parents have no history of heart disease or cancer. However grand mother had cancer. DS: Diagnosis Discharge Diagnosis (1) Emphysema of lung: Status: Acute (2) Recurrent spontaneous pneumothorax: Status: Acute (3) Tobacco abuse: Status: Acute (4) Constipation: Status: Acute DS: Summary 43-year-old female with a previous history of pneumothorax who presented to [facility] due to 3-day duration of shortness of breath. She was found to have significant pneumothorax and a chest tube was placed in the ED. Patient was subsequently transferred to the main hospital for further evaluation and treatment. Acute pneumothorax right-sided, recurrent History of recurrent pneumothorax, first time was April 2018 CT with findings of emphysema -Continue with Percocet, Toradol for pain management. Chest x-ray shows tiny right sided pneumothorax after Chest tube removal. -Dr. Lundberg is following and removed chest tube today 10/03/2018. Low grade fever on 10/02/2018. Likely due to atelectasis. CBC shows WBC 14K which is possibly reactive. No further fever. Continue to use Incentive spirometer. -UA ordered but not collected. Left lower quadrant abdominal pain -Ultrasound was negative, IUD in place, ovaries within normal limits -Appears to have resolved Emphysema COPD -add Duonebs q 8 and PRN, continue Spiriva -Tessalon perles 100 mg po q 8 prn cough Tobacco abuse -Continue nicotine patch 7 mg. -Patient is advised to quit smoking -Patient is motivated, she is planning to talk to her PCP about possibly using Chantix Full code. SCDs Overall, patient continued to do well after chest tube removal on 10/03/2018. Dr. Booth already cleared for discharge on 10/03/2018. Patient was subsequently discharged home with follow up with Dr. Lundberg. Time Spent with Patient Total time spent providing and/or coordinating discharge services: Less than 30 minutes Exam Narrative Exam Narrative: GENERAL: Alert, NAD. SKIN: Warm and dry. HEAD: Normocephalic. EYES: No scleral icterus. No injection or drainage. NECK: Supple, trachea midline. No JVD or lymphadenopathy. CARDIOVASCULAR: Regular rate and rhythm without murmurs, gallops, or rubs. RESPIRATORY: Breath sounds equal bilaterally. No accessory muscle use. Right sided Chest tube in place which was later removed. GASTROINTESTINAL: Abdomen soft, non-tender, nondistended. MUSCULOSKELETAL: No cyanosis, or edema. BACK: Nontender without obvious deformity. No CVA tenderness. Results Impressions ITS Impressions Chest CT 09/20/18 09:33 CONCLUSION: 1. Mild paraseptal emphysema bilaterally. 2. Right-sided chest tube in place. 3. No evidence of pneumothorax. Pelvis Ultrasound 09/21/18 00:00 CONCLUSION: 1. IUD in the uterus. 2. Ovaries within normal limits. Chest X-Ray 10/03/18 17:32 CONCLUSION: Recurrent small pneumothorax on the right following chest tube removal. Tiny right effusion. Discharge Plan Discharge Disposition Patient Disposition: 01 Discharge Home Discharge Condition Condition: Good Discharge Order Discharge Orders: Discharge Order (Routine); Ordered 10/04/18 Ordered By: Chato Brooke Discharge Details Anticipated Discharge Date: 10/04/18 Discharge Comment: Discharge at around 9:00AM, AFTER attending rounds on patient. Physicians Team Primary Care Provider: [facility] Beltran Attending Provider: Chato Brooke Other Providers: Jaime Booth ; Cal Ballard V Rxs /Orders / Referrals /Forms Prescriptions: New benzonatate [Tessalon Perles] 100 mg Capsule 200 mg PO Q8H PRN (Reason: Cough) 7 Days Qty: 20 RF: 0 nicotine 7 mg/24 hr Patch 24 Hour 1 patch Transdermal DAILY Qty: 14 RF: 0 tiotropium bromide [Spiriva with HandiHaler] 18 mcg Capsule, W/Inhalation Device 18 mcg INH DAILY 30 Days Qty: 30 RF: 3 No Action No Known Home Medications RF: 0 Referrals: [facility] Beltran [Primary Care Provider] - See Instructions (Within 2 weeks. PATIENT LEFT BEFORE I WAS ABLE TO MAKE AN APT. [facility] IS FULL AND IT IS VERY VERY BUSY) Jaime Booth MD [Physician] - See Instructions (Within 2-3 weeks. PATIENT LEFT BEFORE I WAS ABLE TO MAKE AN APT. [facility] IS FULL AND IT IS VERY VERY BUSY) Discharge Instructions Patient Printed Instructions: Thoracoscopy (DC) Status ED Status: Admitted Patient Discharge Information Discharge Date/Time: 10/04/18 10:55
== END 2018-10-04 10:55 | disposition home or self-care (01) | DRG 164 ==
LOC: NEDDLT 09-20 01:30 → N06 09-20 01:40 → N03 09-24 14:00
PROVIDERS: ADMIT Hospitalist; ATTEND Hospitalist
DX: J93.83 Other pneumothorax; J93.82 Other air leak; J98.11 Atelectasis; K59.00 Constipation, unspecified; F17.210 Nicotine dependence, cigarettes, uncomplicated; J43.8 Other emphysema; Z80.9 Family history of malignant neoplasm, unspecified; R10.32 Left lower quadrant pain; R00.0 Tachycardia, unspecified
CPT/HCPCS: 32020; 32551; 71010; 71045; 71250; 76856; 76937; 80048; 80053; 82103; 84484; 85025; 85027; 85610; 86850; 86900; 86901; 88305; 88307; 90774; 90775; 90776; 90784; 93005; 93975; 94640; 94664; 94665; 96374; 96375; 96376; 97162; 99291; C8952; J0131; J0690; J1100; J1170; J1644; J1885; J2175; J2270; J2405; J2704; J3010; J7040; J7120